=== PATIENT | male | born 1940 | race African-American/Black ===

== ENCOUNTER 2017-07-26 12:35 | Observation (INO) ==
[2017-07-26] MEDS ORDERED: ENOXAPARIN 100 MG/ML SYRINGE SUBCUT STA (13:07)
--- NOTE | 2017-07-26 13:10 | EKG Report ---
Stationary ECG Study [facility] ER Test Date: 07/26/2017 12:46:32 PM Pat Name: SANJEEV FRIEDMAN Department: Room: Gender: M [employer] In[employer]: : 1940 Requested by: Gilson Koehler Order Number: [id number] Reading MD: MITA FERNANDEZ Intervals [place] Rate: 88 P: 254 MS: 121 QRS: 85 QRSD: 86 T: -43 QT: 369 QTc: 415 Interpretive Statements JUNCTIONAL RHYTHM WITH OCCASIONAL ECTOPIC PREMATURE COMPLEXES Electronically Signed On 07-26-17 17:01:15 CDT by MITA FERNANDEZ [email or web address]
[2017-07-26 13:40] LABS: Basophils # 0.1 10*3/uL (0.0-0.2); Basophils % 0.7 % (0.0-0.8); Eosinophils # 0.2 10*3/uL (0.0-0.87); Eosinophils % 2.8 % (0.00-10.9); Hematocrit 34.8 VOL% (42.0-52.0); Hemoglobin 11.6 GM/DL (14.0-18.0); Immature Granulocytes % 0.3 %; Immature Granulocytes Absolute 0.02 #; Lymphocytes # 1.8 10*3/uL (1.4-4.0); Lymphocytes % 25.7 % (21.2-54.2); Mean Corpuscular HGB Conc 33.3 GM/DL (32-36); Mean Corpuscular Hemoglobin 31 PG (27-34); Mean Corpuscular Volume 92.8 FL (87-102); Mean Platelet Volume 10.1 FL (9.6-12.0); Monocytes # 0.8 10*3/uL (0.11-0.8); Monocytes % 11.3 % (1.7-12.7); Neutrophils # 4.2 10*3/uL (1.4-7.4); Neutrophils % 59.2 % (38.7-73.9); Platelet Count 235 T/CUMM (130-400); Red Blood Count 3.75 MC/CUMM (3.8-5.5); Red Cell Distribution Width 13.7 % (9.3-17.3); White Blood Count 7.1 T/CUMM (4-12)
[2017-07-26] MEDS ORDERED: ENOXAPARIN 120 MG/0.8 ML SYRINGE SUBCUT STA (13:41)
[2017-07-26] MEDS ORDERED: ENOXAPARIN 120 MG/0.8 ML SYRINGE SUBCUT ONE (13:42)
--- NOTE | 2017-07-26 13:46 | XRay Report ---
XR chest 1V portable Indication: Chest pain. Comparison: None. Technique: Portable AP chest was performed. Findings: The heart is minimally enlarged. Previous sternotomy is demonstrated. Pulmonary vasculature demonstrates no specific abnormality. Hilar structures demonstrate fairly symmetric appearance. The lungs appear clear. Bones and soft tissues demonstrate no evidence of acute pathology. Impression: 1. No evidence of acute pathology. 2. Mild cardiomegaly is suggested. 07/26/2017 1:43 PM PROCEDURE INTERPRETED AT [facility] DEPARTMENT OF RADIOLOGY Final Report Signed by: Dr. Fred Ojeda
[2017-07-26 14:04] LABS: Alanine Aminotransferase 17 U/L (16-61); Albumin 3.7 G/DL (3.4-5.0); Alkaline Phosphatase 95 U/L (45-117); Aspartate Amino Transferase 20 U/L (0-37); Bilirubin,Total < 0.39 MG/DL (0.2-1.0); Blood Urea Nitrogen 44 MG/DL (7-18); Calcium 8.9 MG/DL (8.5-10.1); Glucose 103 MG/DL (74-106); Potassium 5.4 MMOL/L (3.5-5.1); Sodium 143 MMOL/L (136-145); Total Protein 7.6 G/DL (6.4-8.3)
--- NOTE | 2017-07-26 14:54 | Emergency Department Note ---
Alva Goodwin Hilary, am scribing for, and in the presence of, Gilson Hitchcock MD 13:04. Naldo Goodwin Phillip K, MD, personally performed the services described in this documentation, ascribed by Carisa Calle in my presence, and it is both accurate and complete [id number] . Arrival - Arrival Chief Complaint: Chest Pain Stated Complaint: chest pain and light headed ED Nursing Triage Note: Pt c/o Chest pain, SOB, and lightheaded since Monday. Mode of Arrival: Ambulatory Limitations: No Limitations Source: Patient, RN Notes Reviewed - History of Present Illness HPI Narrative: Pt is a 76 y/o male presenting to the ED with c/o chest pain which onset 4 days ago. He states that he had a single bypass in '. He states that he has this happen intermittently and so he usually sits down until it passes. He says the latest episode was this morning around 0800 and it lasted about 4 minutes, but he denies pain right now. Pt confirms chest pain which gets worse with exertion , SOB and feet swelling but denies nausea, vomiting, diaphoresis, fever or cough Pt has a PMHx of HTN, dyslipidemia and NIDDM. No other complaints or problems stated in the ED. Onset (ago): day(s) Consistency: intermittent, now resolved Severity: mild, similar to previous episodes Severity scale (1-10): 2 Allergies/Adverse Reactions: Allergies Allergy/AdvReac Type Severity Reaction Status Date / Time No Known Allergies Allergy Verified 07/26/17 12:37 Home Medications: Home Medications Medication Instructions Recorded Confirmed Type Allopurinol [Allopurinol] 100 mg PO QAM 07/26/17 07/26/17 History Aspirin EC Tab 81 mg PO QAM 07/26/17 07/26/17 History Atenolol [Atenolol] 50 mg PO QAM 07/26/17 07/26/17 History Furosemide [Furosemide] 40 mg PO QAM 07/26/17 07/26/17 History Lisinopril [Lisinopril] 40 mg PO QAM 07/26/17 07/26/17 History Simvastatin [Simvastatin] 40 mg PO BEDTIME 07/26/17 07/26/17 History amLODIPine [Norvasc] 10 mg PO QAM 07/26/17 07/26/17 History glipiZIDE [Glipizide] 5 mg PO QAM 07/26/17 07/26/17 History Review of System - Review of System 12 point system: reviewed and no additional remarkable complaints except as stated - Review of System Constitutional: Absent: diaphoresis, fever Respiratory: Present: respiratory distress (SOB) Cardiovascular: Present: chest pain, edema Gastrointestinal: Absent: abdominal pain, nausea, vomiting Medical,Surgical,& Family Hx - Medical History Cardio: History of: Hypertension Endocrine: History of: Diabetes Mellitus (NIDDM), Dyslipidemia - Surgical History Cardiac Surgeries: Sugical HX of: Cardiac Surgery (CABG) - Social History Smoking Status: Never smoker Exam Vital Signs: Vital Signs Temperature 98.6 F 07/26/17 12:37 Pulse Rate 78 07/26/17 14:16 Respiratory Rate 49 H 07/26/17 14:16 Blood Pressure 155/75 07/26/17 14:16 O2 Sat by Pulse Oximetry 98 07/26/17 14:16 - General General appearance: alert, in no apparent distress - Head Head exam: Present: atraumatic, normocephalic - Eye Eye exam: Present: normal appearance, PERRL, EOMI - ENT ENT exam: Present: mucous membranes moist, TM's normal bilaterally. Absent: mucous membranes dry - Neck Neck exam: Present: full ROM, trachea midline. Absent: tenderness - Chest Chest inspection: Present: symmetric chest wall rise. Absent: tenderness - Respiratory Respiratory exam: Present: normal lung sounds bilaterally. Absent: respiratory distress - Cardiovascular Cardiovascular exam: Present: regular rate, normal rhythm, normal heart sounds. Absent: murmur, rubs, gallop - Abdominal Exam Abdominal exam: Present: soft, normal bowel sounds. Absent: distention, tenderness - Extremities Exam Extremities exam: Present: full ROM, pedal edema (+1 ). Absent: tenderness - Back Exam Back exam: Present: full ROM. Absent: tenderness - Neurological Exam Neurological exam: Present: alert, oriented X3, CN II-XII intact. Absent: motor sensory deficit - Psychiatric Psychiatric exam: Present: normal affect, normal mood - Skin Skin exam: Present: warm, dry, intact, normal color. Absent: rash Course Course Narrative: Mr. Bowman creatinine is 6.0 today. We checked with Dr. Can's office and the last creatinine we have was in January was 4.92. Results - Labs CBC & BMP: 07/26/17 13:34 07/26/17 13:34 Lab Results: I have reviewed the patients labs Labs: Laboratory Tests 07/26/17 13:34 WBC 7.1 RBC 3.75 L Hgb 11.6 L Hct 34.8 L Laboratory Tests 07/26/17 07/26/17 13:34 13:34 Sodium 143 Potassium 5.4 H Chloride 115 H Carbon Dioxide 21 BUN 44 H Creatinine 6.00 H Troponin I 0.153 H Globulin 3.9 H Albumin/Globulin Ratio 0.9 L - EKG EKG results: interpreted by SKYLAR (Junctional rhythm with nonspecific ST-T changes) - Diagnostic Findings Procedure: Chest x-ray: report reviewed by me (1. No evidence of acute pathology. 2. Mild cardiomegaly is suggested.) Disposition Clinical Impression: Chest pain, Unstable angina pectoris, Chronic renal failure Case discussed with: patient Disposition: Still a Patient Condition: Guarded
[2017-07-26] MEDS ORDERED: ACETAMINOPHEN 325 MG TABLET PO PRN (15:04)
[2017-07-26] MEDS ORDERED: GLUCAGON 1 MG VIAL IM PRN (15:04)
[2017-07-26] MEDS ORDERED: ONDANSETRON 4 MG/2 ML VIAL IV PRN (15:04)
[2017-07-26] MEDS ORDERED: DEXTROSE 50% 25 GM/50 ML SYRINGE IV PRN (15:04)
[2017-07-26] MEDS: INSULIN REGULAR 100 UNIT/ML SUBCUT SCH ×2 (17:33→22:11)
[2017-07-26] MEDS ORDERED: NITROGLYCERIN SL 0.4 MG TABLET SL PRN (19:52)
--- NOTE | 2017-07-26 19:58 | Family Practice History&Phys ---
Assessment and Plan - Time spent with patient Time spent with patient: Greater than 30 minutes (1) Chest pain Status: Acute Assessment and plan: see HPI per Cardiology consult Current Visit: Yes (2) Chronic renal failure Status: Acute Assessment and plan: consult Renal Current Visit: Yes (3) Unstable angina pectoris Status: Acute Current Visit: Yes History of Present Illness Chief complaint: chest pain and light headed History of present illness: Mr. Hidalgo is a 76 year old male that is a patient of mine that has no other family and he presented to the ED with c/o of chest pain that started about 4 days ago. He states that he had a single bypass in 84'. He states that he has this happen intermittently and so he usually sits down until it passes. He says the latest episode was this morning around 0800 and it lasted about 4 minutes, but he denies pain right now. Pt confirms chest pain which gets worse with exertion, also c/o mild SOB and feet swelling but denies nausea, vomiting, diaphoresis, fever or cough. Patient has a PMHx of HTN, dyslipidemia and NIDDM. No other complaints or problems stated in the ED. Renal function poor. Plan admit and consult cardiology and renal consult. Home Medications Medication Instructions Recorded Confirmed Type Allopurinol [Allopurinol] 100 mg PO QAM 07/26/17 07/26/17 History Aspirin EC Tab 81 mg PO QAM 07/26/17 07/26/17 History Atenolol [Atenolol] 50 mg PO QAM 07/26/17 07/26/17 History Lisinopril [Lisinopril] 40 mg PO QAM 07/26/17 07/26/17 History Simvastatin [Simvastatin] 40 mg PO BEDTIME 07/26/17 07/26/17 History amLODIPine [Norvasc] 10 mg PO QAM 07/26/17 07/26/17 History glipiZIDE [Glipizide] 5 mg PO QAM 07/26/17 07/26/17 History Allergies Allergy/AdvReac Type Severity Reaction Status Date / Time No Known Allergies Allergy Verified 07/26/17 12:37 12 point system: reviewed and no additional remarkable complaints except as stated (as those stated in HPI) Medical,Surgical,& Family Hx - Medical History Cardio: History of: Hypertension Endocrine: History of: Diabetes Mellitus (NIDDM), Dyslipidemia - Surgical History Cardiac Surgeries: Sugical HX of: Cardiac Surgery (CABG) Neurologic Surgeries: Patient denies: Neurologic Surgery Reproductive Surgeries: Surgical HX of;: Genitourinary Surgery, Prostate Surgery - Family History Family History: Reports;: Family Heart Disease - Social History Smoking Status: Never smoker Exam - Constitutional Vitals: Period Temp Pulse Resp BP Sys/V[place]or Pulse Ox Last 24 Hr 97.7 F-98.6 F 75-85 16-49 142-200/68-86 92-100 Exam: General: well developed moderately obese male alert and oriented, no chest pain at present HEENT: neck supple trachea midline Cardiovascular: rate regular no gallop or rub Chest: incisional scar noted healed Lungs: clear no wheese rles or rhonchi Abdomen: soft non distended Ext: 1+ edema bilateral lower extremities Neurologic: fully intact Results - Labs CBC & BMP: 07/26/17 13:34 07/26/17 13:34
[2017-07-26] MEDS ORDERED: SIMVASTATIN 40 MG TABLET PO SCH (21:00)
[2017-07-26] MEDS: DOCUSATE SODIUM 100 MG CAPSULE PO SCH (22:11)
[2017-07-26 22:52] LABS: Troponin I Only 0.336 NG/ML (0.00-0.045)
--- NOTE | 2017-07-27 08:01 | EKG Report ---
Stationary ECG Study [facility] Test Date: 07/26/2017 10:17:23 PM Pat Name: SANJEEV FRIEDMAN Department: Room: 290 Gender: M [employer]': : 1940 Requested by: Gilson Koehler Order Number: [id number] Reading MD: MITA FERNANDEZ Intervals [place] Rate: 69 P: 60 AL: 185 QRS: 43 QRSD: 102 T: 58 QT: 438 QTc: 457 Interpretive Statements SINUS RHYTHM POOR R-WAVE PROGRESSION Electronically Signed On 07-28-17 15:28:23 CDT by MITA FERNANDEZ [email or web address]
[2017-07-27] MEDS ORDERED: ATENOLOL 50 MG TABLET PO SCH (09:00)
--- NOTE | 2017-07-27 09:13 | Family Practice Progress Note ---
Family Practice - PN: Subj Interval history: Patient seen this morning. He rested fairly well last night. Is in no acute distress and has not had any chest pain or shortness of breath through the night. Is alert and oriented. He is being covered with appropriate medications for cardiac issues. I am getting cardiology to see him today and appreciate their assistance on this case Exam (Progress Note) - Constitutional Vitals: Period Temp Pulse Resp BP Sys/V[place]or Pulse Ox Last 24 Hr 97.4 F-98.6 F 69-85 16-49 142-200/67-86 92-100 Exam: General: well developed moderately obese male alert and oriented, no chest pain at present HEENT: neck supple trachea midline Cardiovascular: rate regular no gallop or rub Chest: incisional scar noted healed Lungs: clear no wheese rles or rhonchi Abdomen: soft non distended Ext: No edema appreciated this morning Neurologic: fully intact Results - Labs CBC & BMP: 07/26/17 13:34 07/26/17 13:34 Assessment and Plan (1) Chest pain Status: Acute Assessment and plan: see HPI per Cardiology consult Current Visit: Yes (2) Chronic renal failure Status: Acute Assessment and plan: consult Renal Current Visit: Yes (3) Unstable angina pectoris Status: Acute Current Visit: Yes
[2017-07-27] MEDS: LISINOPRIL 20 MG TABLET PO SCH (11:30)
[2017-07-27] MEDS: ENOXAPARIN 30 MG/0.3 ML SYRINGE SUBCUT SCH (11:30)
[2017-07-27] MEDS: ALLOPURINOL 100 MG TABLET PO SCH (11:31)
[2017-07-27] MEDS: amLODIPine 10 MG TABLET PO SCH (11:31)
[2017-07-27] MEDS: DOCUSATE SODIUM 100 MG CAPSULE PO SCH ×3 (11:31→21:19)
[2017-07-27] MEDS: PANTOPRAZOLE 40 MG TABLET PO SCH (11:32)
[2017-07-27] MEDS: ISOSORBIDE MONONITRATE 30 MG TABLET PO SCH (11:32)
[2017-07-27] MEDS: glipiZIDE 5 MG TABLET PO SCH (11:32)
[2017-07-27] MEDS: INSULIN REGULAR 100 UNIT/ML SUBCUT SCH ×4 (11:33→21:16)
[2017-07-27] MEDS: ASPIRIN EC 81 MG TABLET PO SCH (11:42)
--- NOTE | 2017-07-27 12:24 | Nephrology Consult Note ---
History of Present Illness Chief complaint: Chronic kidney disease stage V History of present illness: Mr. Hidalgo is a 76 year old male who has a history of chronic kidney disease due to hypertension and diabetes is well known to this nephrology service. The patient's serum creatinine has been trending up over the last year and patient has been very resistant about starting dialysis. He has a history of coronary artery disease as well as hypertension and presented with atypical chest pain. Currently, patient serum creatinine is 6. No shortness of breath or chest pain. No fevers or chills. He has been hemodynamically stable. Of note, patient does not use intake medications. There is been no other change in medications. Home Medications Medication Instructions Recorded Confirmed Type Allopurinol [Allopurinol] 100 mg PO QAM 07/26/17 07/26/17 History Aspirin EC Tab 81 mg PO QAM 07/26/17 07/26/17 History Atenolol [Atenolol] 50 mg PO QAM 07/26/17 07/26/17 History Lisinopril [Lisinopril] 40 mg PO QAM 07/26/17 07/26/17 History Simvastatin [Simvastatin] 40 mg PO BEDTIME 07/26/17 07/26/17 History amLODIPine [Norvasc] 10 mg PO QAM 07/26/17 07/26/17 History glipiZIDE [Glipizide] 5 mg PO QAM 07/26/17 07/26/17 History Allergies Allergy/AdvReac Type Severity Reaction Status Date / Time No Known Allergies Allergy Verified 07/26/17 12:37 Medical,Surgical,& Family Hx - Medical History Cardio: History of: Hypertension Endocrine: History of: Diabetes Mellitus (NIDDM), Dyslipidemia - Surgical History Cardiac Surgeries: Sugical HX of: Cardiac Surgery (CABG) Neurologic Surgeries: Patient denies: Neurologic Surgery Reproductive Surgeries: Surgical HX of;: Genitourinary Surgery, Prostate Surgery - Family History Family History: Reports;: Family Heart Disease - Social History Smoking Status: Never smoker Review of Systems Constitutional: no anorexia Nose, mouth and throat: no dysphagia, no epistaxis Cardiovascular: no chest pain at rest, no chest pain with activity Respiratory: no cough Gastrointestinal: no abdominal pain Exam - Vital Signs Vital signs: Period Temp Pulse Resp BP Sys/V[place]or Pulse Ox Last 24 Hr 97 F-98.6 F 69-85 16-49 142-200/67-86 92-100 - General Appearance General appearance: well-developed, well-nourished EENT: ATNC Neck: supple Respiratory: clear Cardiology: regular rate, regular rhythm Gastrointestinal: normoactive bowel sounds, no tenderness, no guarding Neurologic: no focal deficit, alert and oriented x3, CN 3-12 intact Musculoskeletal: no clubbing Psychiatric: mood/affect appropriate Results - Labs CBC & BMP: 07/26/17 13:34 07/26/17 13:34 Assessment and Plan (1) Hypertension Status: Chronic Current Visit: Yes Qualifiers: Hypertension type: essential hypertension Qualified Code(s): I10 - Essential (primary) hypertension (2) Dyslipidemia Status: Chronic Current Visit: Yes (3) Chronic renal disease, stage IV Status: Chronic Assessment and plan: Protect left arm from blood pressure and blood draws. BMP in a.m. Avoid nephrotoxic agents. Current Visit: Yes (4) Diabetes type 2, controlled Status: Chronic Current Visit: Yes Qualifiers: Diabetes mellitus complication status: with kidney complications Diabetes mellitus complication detail: with chronic kidney disease Chronic kidney disease stage: stage 4 (severe) (5) Unstable angina pectoris Status: Acute Current Visit: Yes
--- NOTE | 2017-07-27 12:57 | Ultrasound Report ---
US carotid duplex BI Indication: bruit. Comparison: None. Technique: Using transcutaneous probe, routine carotid arterial duplex ultrasound performed. Ultrasound images were captured and stored. Estimation of stenosis will be made using indirect NASCET criteria. Ultrasound images were captured and stored. Findings: Grayscale and color Doppler findings: There does appear to be a small amount of echogenic plaque within the right carotid artery bulb. Small moderate amount of echogenic plaque some of which demonstrates posterior shadowing is noted within the origin and proximal right cervical segment ICA. Similar findings noted within the left carotid artery bulb. The quality of echotexture is slightly less echogenic. Peak systolic velocities are as follows (centimeters per second): Velocities are elevated in the right proximal cervical segment ICA measuring 149 cm/s. Velocities additionally elevated within the proximal left cervical segment ICA measuring 155 cm/s. Distal left cervical segment ICA measurements additionally are elevated measuring 134 cm/s. ICA to CCA ratio on the right is 2.2 on the left 2.3. External carotid arteries: External carotid arteries are bilaterally patent. Vertebral arteries: Flow cannot be determined within the left vertebral artery. Antegrade flow is present within the right vertebral artery. Impression: 1. 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 2. No flow in be determined within the left vertebral artery. 07/27/2017 12:52 PM PROCEDURE INTERPRETED AT [facility] DEPARTMENT OF RADIOLOGY Final Report Signed by: Dr. Fred Ojeda
--- NOTE | 2017-07-27 14:57 | Cardiology Consult Note ---
I, Merry Jimenez NP, am scribing for, and in the presence of, Kyle Richardson MD 14:55. Assessment and Plan - Time spent with patient Time spent with patient: Greater than 30 minutes (Record review, assessment, and documentation) (1) Chest pain Status: Acute Assessment and plan: The patient has chest pain symptoms which I believe are anginal in nature. However, I am going to hold off on invasive workup/catheterization because of his severe renal insufficiency. Hopefully we can get this managed medically. I appreciate Dr. Doe's input and assistance. Current Visit: Yes (2) Unstable angina pectoris Status: Acute Assessment and plan: See above Current Visit: Yes (3) Hypertension Status: Chronic Assessment and plan: I am making some adjustments in his blood pressure medication to improve his hypertension control. Of note, he is on an HERB inhibitor and with his renal insufficiency we may need to stop this medication. I would like to get Dr. Doe's input on this. Current Visit: Yes Qualifiers: Hypertension type: essential hypertension Qualified Code(s): I10 - Essential (primary) hypertension (4) Chronic renal failure Status: Chronic Assessment and plan: The patient has a slowly rising creatinine. I am going to consult Dr. Doe for assistance and management. Because of his severe renal insufficiency we may need to stop his HERB inhibitor but I would like Dr. Russell and put on this. 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 Hidalgo is a 76 year old male, presented to the ER with complaints of chest pain and dyspnea on exertion. He reports that his symptoms began about 2 months ago, but that the chest pain and dyspnea were alleviated with rest. He reports that the most recent episode began on Monday, and he noticed that the symptoms were not relieved with rest. He also noted diaphoresis that occurred at the time of chest pain. He denies nausea, vomiting, or diarrhea. He denies smoking, alcohol use, or illicit drug use. Cardiac risk factors include: Obesity, advanced age, CAD, dyslipidemia, diabetes, chronic renal failure, hypertension, and sedentary lifestyle. Past surgical history includes single- vessel coronary artery bypass in 1982, done in [place], [place] and a prostate surgery for an enlarged prostate. 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 He admits that he is compliant with his daily medications. He reports that he sees Dr. Doe regularly for his chronic renal failure and that he has not yet required hemodialysis. The patient was seen today by myself and Dr. Richardson. He was sitting on the side of the bed in no apparent distress. He denies complaints of chest pain or dyspnea. Vital signs reviewed, and his systolic blood pressures have remained in the 150s-170s. Heart rate in the 70s. EKG reveals normal sinus rhythm. Labs reviewed today: Hemoglobin 11.6, hematocrit 34.8, potassium 5.4, creatinine 6.0, BUN 44, glucose 103, creatinine kinase 419, CK-MB 3.8, and troponin I peaked at 0.413. We will obtain an echocardiogram, and carotid Dopplers. At this point, we will maximize medical management of this patient due to his significant chronic renal disease. The patient may benefit from a left heart cath at some point, however will hold off until we can consult nephrology for recommendations. Home Medications Medication Instructions Recorded Confirmed Type Allopurinol [Allopurinol] 100 mg PO QAM 07/26/17 07/26/17 History Aspirin EC Tab 81 mg PO QAM 07/26/17 07/26/17 History Atenolol [Atenolol] 50 mg PO QAM 07/26/17 07/26/17 History Lisinopril [Lisinopril] 40 mg PO QAM 07/26/17 07/26/17 History Simvastatin [Simvastatin] 40 mg PO BEDTIME 07/26/17 07/26/17 History amLODIPine [Norvasc] 10 mg PO QAM 07/26/17 07/26/17 History glipiZIDE [Glipizide] 5 mg PO QAM 07/26/17 07/26/17 History ASSESSMENT/PLAN: 1. UNSTABLE ANGINA -currently chest pain-free, we will optimize medical management at this time. Cardiac catheterization would undoubtedly send the patient to dialysis. If we can manage him medically we may be able to postpone invasive cardiac assessment. His case was discussed today with Dr. Doe who will be assisting in management as well. If the patient has anginal symptoms despite optimal medical therapy we may have to consider catheterization. 2. CAD -see above, obtain echocardiogram. 3. HYPERTENSION -I am good to make some adjustments in his medical management to improve his hypertension control. Of note, the patient is on an HERB inhibitor. Given his renal insufficiency we may have to adjust this medication. 4. CHRONIC RENAL FAILURE -unclear if this is acute on chronic renal failure, consult nephrology for recommendations. 5. CAROTID BRUIT -obtain carotid ultrasound. 6. DYSLIPIDEMIA -will obtain a fasting lipid profile, stop simvastatin, initiate Lipitor. 7. DIABETES TYPE 2 -Accu-Cheks and sliding scale insulin if needed, continue oral medications. CC: Lukas Can, DO - Home Medications and Allergies Home Medications: Home Medications Medication Instructions Recorded Confirmed Type Allopurinol [Allopurinol] 100 mg PO QAM 07/26/17 07/26/17 History Aspirin EC Tab 81 mg PO QAM 07/26/17 07/26/17 History Atenolol [Atenolol] 50 mg PO QAM 07/26/17 07/26/17 History Lisinopril [Lisinopril] 40 mg PO QAM 07/26/17 07/26/17 History Simvastatin [Simvastatin] 40 mg PO BEDTIME 07/26/17 07/26/17 History amLODIPine [Norvasc] 10 mg PO QAM 07/26/17 07/26/17 History glipiZIDE [Glipizide] 5 mg PO QAM 07/26/17 07/26/17 History Allergies/Adverse Reactions: Allergies Allergy/AdvReac Type Severity Reaction Status Date / Time No Known Allergies Allergy Verified 07/26/17 12:37 - Constitutional Constitutional: Absent: anorexia, chills, daytime sleepiness, frequent falls - EENT Nose, mouth and throat: Absent: dysphagia, epistaxis, headache(s) - Cardiovascular Cardiovascular: Present: chest pain with activity, diaphoresis, dyspnea on exertion, edema - Respiratory Respiratory: Present: dyspnea, dyspnea on exertion. Absent: cough, wheezing - Gastrointestinal Gastrointestinal: Absent: abdominal pain, change in bowel habits, coffee ground emesis, constipation, dysphagia, heartburn, hematemesis, melena, nausea, vomiting - Genitourinary Genitourinary: Absent: dysuria, hematuria - Neurological Neurological: Absent: abnormal gait, abnormal speech, behavioral changes, confusion, dizziness - Psychiatric Psychiatric: Absent: anxiety - Endocrine Endocrine: Absent: fatigue - Hematologic/Lymphatic Hematologic/Lymphatic: Absent: easy bleeding, easy bruising Medical,Surgical,& Family Hx - Medical History Cardio: History of: CAD, Hypertension, [place] No history of: Cardiac Dysrhythmia, Cerebrovascular Disease Psychological: No history of: Anxiety Disorders, Behavior Problems Neurology: No history of: Cerebral Hemorrhage, Cerebrovascular Accident, TIA Endocrine: History of: Diabetes Mellitus (NIDDM), Dyslipidemia Respiratory: No history of: Asthma, COPD Renal: History of: Renal Failure No history of: Dialysis Genitourinary: History of: Prostate Problems Gastrointestinal: No history of: Bowel Obstruction, Gastrointestinal Bleed Musculoskeletal: No history of: Amputation, Back/Neck Problems - Surgical History Cardiac Surgeries: Sugical HX of: Cardiac Surgery (CABG) Neurologic Surgeries: Patient denies: Neurologic Surgery Reproductive Surgeries: Surgical HX of;: Genitourinary Surgery, Prostate Surgery - Family History Family History: Reports;: Family Heart Disease - Social History Smoking Status: Never smoker Frequency of Alcohol Use: None Type of Drug Use: None Functional capacity: independent ambulation Physical Examination Vital Signs Temp Pulse Resp BP Pulse Ox 98.6 F 85 20 200/86 97 07/26/17 12:37 07/26/17 12:37 07/26/17 12:37 07/26/17 12:37 07/26/17 12:37 Exam: General: Obese, appears well with no apparent distress. Pleasant and cooperative. Appears comfortable. HEENT: PERRL, normocephalic, atraumatic. Mucous membranes moist. No jaundice noted. Conjunctiva moist and clear, sclerae anicteric. Neck: No JVD/HJR, no thyromegaly or lymphadenopathy noted. Soft carotid bruit appreciated bilaterally Cardiac: Regular rate and rhythm. No murmur, no rub or gallop. PMI is nondisplaced. Lungs: Clear to auscultation without accessory muscle use to assist the respiratory pattern. No oxygen required. Abdomen: Soft, bowel sounds normoactive. Nontender and nondistended. No abdominal bruit or thrill noted. No masses noted. Musculoskeletal: No fluid collection. Decreased range of motion is noted. Extremities: No clubbing, cyanosis noted. No edema noted. Upper extremity pulses 2+. Lower extremity pulses 2+. Capillary refill less than 3 seconds. Skin: No unusual lesions or rashes. No skin breakdown appreciated. Neuro: Awake, alert and oriented 3. Moves all extremities well without hemiparesis or paralysis. No essential tremor is appreciated. Result/EKG - Labs CBC & BMP: 07/26/17 13:34 07/26/17 13:34 Lab Results: I have reviewed the past 24 hour labs Labs: Laboratory Results - last 24 hr 07/26/17 07/26/17 07/26/17 13:34 13:34 13:34 WBC 7.1 RBC 3.75 L Hgb 11.6 L Hct 34.8 L MCV 92.8 MCH 31 MCHC 33.3 RDW 13.7 Plt Count 235 MPV 10.1 Neut % (Auto) 59.2 Lymph % (Auto) 25.7 [place] % (Auto) 11.3 Eos % (Auto) 2.8 Baso % (Auto) 0.7 Neut # (Auto) 4.2 Lymph # (Auto) 1.8 [place] # (Auto) 0.8 Eos # (Auto) 0.2 Baso # (Auto) 0.1 Immature Gran % 0.3 Nucleated RBC % 0.0 Immature Gran # 0.02 Nucleated RBCs # 0.00 Immature Plt Fraction 0.0 Sodium 143 Potassium 5.4 H Chloride 115 H Carbon Dioxide 21 Anion Gap 12.4 BUN 44 H Creatinine 6.00 H GFR Calculation 14 BUN/Creatinine Ratio 7.00 Glucose 103 POC Glucose Calculated Osmolality 295.0 Calcium 8.9 Magnesium 2.0 Total Bilirubin < 0.39 AST 20 ALT 17 Alkaline Phosphatase 95 Total Creatine Kinase CK-MB (CK-2) Troponin I 0.153 H Total Protein 7.6 Albumin 3.7 Globulin 3.9 H Albumin/Globulin Ratio 0.9 L 07/26/17 07/26/17 07/26/17 16:55 17:14 18:37 WBC RBC Hgb Hct MCV MCH MCHC RDW Plt Count MPV Neut % (Auto) Lymph % (Auto) [place] % (Auto) Eos % (Auto) Baso % (Auto) Neut # (Auto) Lymph # (Auto) [place] # (Auto) Eos # (Auto) Baso # (Auto) Immature Gran % Nucleated RBC % Immature Gran # Nucleated RBCs # Immature Plt Fraction Sodium Potassium Chloride Carbon Dioxide Anion Gap BUN Creatinine GFR Calculation BUN/Creatinine Ratio Glucose POC Glucose 90 Calculated Osmolality Calcium Magnesium Total Bilirubin AST ALT Alkaline Phosphatase Total Creatine Kinase CK-MB (CK-2) Troponin I 0.361 H D 0.413 H Total Protein Albumin Globulin Albumin/Globulin Ratio 07/26/17 07/26/17 07/27/17 20:37 21:32 07:50 WBC RBC Hgb Hct MCV MCH MCHC RDW Plt Count MPV Neut % (Auto) Lymph % (Auto) [place] % (Auto) Eos % (Auto) Baso % (Auto) Neut # (Auto) Lymph # (Auto) [place] # (Auto) Eos # (Auto) Baso # (Auto) Immature Gran % Nucleated RBC % Immature Gran # Nucleated RBCs # Immature Plt Fraction Sodium Potassium Chloride Carbon Dioxide Anion Gap BUN Creatinine GFR Calculation BUN/Creatinine Ratio Glucose POC Glucose 177 H 108 H Calculated Osmolality Calcium Magnesium Total Bilirubin AST ALT Alkaline Phosphatase Total Creatine Kinase 419 H CK-MB (CK-2) 3.8 H Troponin I 0.336 H Total Protein Albumin Globulin Albumin/Globulin Ratio - Diagnostic Findings Procedure: Chest x-ray: report reviewed by me - EKG EKG results: interpreted by me, sinus rhythm I, Kyle Richardson MD, personally performed the services described in this documentation, ascribed by Merry Jimenez NP in my presence, and it is both accurate and complete 457 .
--- NOTE | 2017-07-27 18:31 | ECHO Report ---
Vic Hidalgo Exam Date: 07/27/2017 10:20 Referring Physician: Technologist: Estela Mi Age: 76 Ht (in): 70 Wt (lb): 284 Gender: M Exam Location: [facility] Echo Indications: diabetes, CRF, chest pain, angina, CAD, dyspnea BP: 176 / 84 HR: 70 Rhythm: Sinus Technical Quality: Technically difficult study IMPRESSIONS Technically difficult study. Left ventricular ejection fraction is estimated at 50-55 %. Mild concentric left ventricular hypertrophy with mild diastolic dysfunction. Trace mitral regurgitation. Trace tricuspid regurgitation. MEASUREMENTS (Male / Female) Normal Values 2D ECHO LV Diastolic Diameter PLAX 3.8 cm 4.2 - 5.9 / 3.9 - 5.3 cm LV Systolic Diameter PLAX 2.9 cm LV Fractional Shortening PLAX 22.9 % IVS Diastolic Thickness 1.6 cm 0.6 - 1.0 / 0.6 - 0.9 cm LVPW Diastolic Thickness 1.7 cm 0.6 - 1.0 / 0.6 - 0.9 cm Aortic Root Diameter 3.2 cm LA Systolic Diameter LX 3.9 cm 3.0 - 4.0 / 2.7 - 3.8 cm FINDINGS Left Ventricle Normal left ventricular cavity size. Mild concentric left ventricular hypertrophy with mild diastolic dysfunction. Left ventricular ejection fraction is estimated at 50-55 %. Right Ventricle Normal right ventricular size. Right Atrium Normal right atrial size. Left Atrium Normal left atrial size. Mitral Valve Morphologically normal mitral valve. Trace mitral regurgitation. Aortic Valve Trileaflet aortic valve. Tricuspid Valve Morphologically normal tricuspid valve. Trace tricuspid regurgitation. Pulmonic Valve Morphologically normal pulmonic valve. Pericardium No pericardial effusion. Aorta Normal size aortic root and proximal ascending aorta. Kyle Richardson (Electronically Signed) Final Date: 27 July 2017 18:05
[2017-07-27] MEDS ORDERED: ATORVASTATIN 40 MG TABLET PO SCH (21:00)
[2017-07-27] MEDS: CARVEDILOL 25 MG TABLET PO SCH (21:15)
[2017-07-28 05:15] LABS: Basophils # 0.1 10*3/uL (0.0-0.2); Basophils % 0.9 % (0.0-0.8); Eosinophils # 0.2 10*3/uL (0.0-0.87); Eosinophils % 4.5 % (0.00-10.9); Hematocrit 30.4 VOL% (42.0-52.0); Immature Granulocytes % 0.2 %; Immature Granulocytes Absolute 0.01 #; Lymphocytes # 1.7 10*3/uL (1.4-4.0); Lymphocytes % 31.6 % (21.2-54.2); Mean Corpuscular HGB Conc 32.9 GM/DL (32-36); Mean Corpuscular Hemoglobin 31 PG (27-34); Mean Corpuscular Volume 93.3 FL (87-102); Mean Platelet Volume 10.3 FL (9.6-12.0); Monocytes # 0.8 10*3/uL (0.11-0.8); Monocytes % 14.1 % (1.7-12.7); Neutrophils # 2.6 10*3/uL (1.4-7.4); Neutrophils % 48.7 % (38.7-73.9); Platelet Count 199 T/CUMM (130-400); Red Blood Count 3.26 MC/CUMM (3.8-5.5); Red Cell Distribution Width 13.7 % (9.3-17.3); White Blood Count 5.3 T/CUMM (4-12)
[2017-07-28 05:48] LABS: Calcium 8.1 MG/DL (8.5-10.1); Magnesium 2.2 MG/DL (1.8-2.4); Potassium 5.2 MMOL/L (3.5-5.1)
[2017-07-28 05:49] LABS: Risk Ratio 5.4; VLDL CHOLESTEROL 24.4 MG/DL
--- NOTE | 2017-07-28 07:48 | EKG Report ---
Stationary ECG Study [facility] Test Date: 07/28/2017 7:49:08 AM Pat Name: SANJEEV FRIEDMAN Department: Room: 290 Gender: M Qc Analyst: HUSSEIN : 1940 Requested by: Meghan Wright Order Number: [id number] Reading MD: MITA FERNANDEZ Intervals [place] Rate: 63 P: 59 FL: 198 QRS: 48 QRSD: 90 T: 60 QT: 436 QTc: 443 Interpretive Statements SINUS RHYTHM WITH OCCASIONAL SUPRAVENTRICULAR PREMATURE COMPLEXES POOR R-WAVE PROGRESSION Electronically Signed On 07-28-17 15:59:05 CDT by MITA FERNANDEZ [email or web address]
[2017-07-28] MEDS: PANTOPRAZOLE 40 MG TABLET PO SCH (09:06)
[2017-07-28] MEDS: INSULIN REGULAR 100 UNIT/ML SUBCUT SCH ×2 (09:06→12:35)
[2017-07-28] MEDS: LISINOPRIL 20 MG TABLET PO SCH (09:06)
[2017-07-28] MEDS: ALLOPURINOL 100 MG TABLET PO SCH ×2 (09:06→10:52)
[2017-07-28] MEDS: ISOSORBIDE MONONITRATE 30 MG TABLET PO SCH (09:06)
[2017-07-28] MEDS: amLODIPine 10 MG TABLET PO SCH (09:06)
[2017-07-28] MEDS: glipiZIDE 5 MG TABLET PO SCH (09:06)
[2017-07-28] MEDS: ASPIRIN EC 81 MG TABLET PO SCH (09:06)
[2017-07-28] MEDS: CARVEDILOL 25 MG TABLET PO SCH (09:06)
[2017-07-28] MEDS: ENOXAPARIN 30 MG/0.3 ML SYRINGE SUBCUT SCH (09:06)
[2017-07-28] MEDS: DOCUSATE SODIUM 100 MG CAPSULE PO SCH (09:06)
[2017-07-28 11:49] VITALS: BP 171/77
--- NOTE | 2017-07-28 12:21 | Cardiology Progress Note ---
Tony Goodwin Lesley, NP, am scribing for, and in the presence of, Kyle Richardson MD 12:21. Assessment and Plan (1) Hypertension Status: Chronic Assessment and plan: SEE PLAN LISTED BELOW Current Visit: Yes Qualifiers: Hypertension type: essential hypertension Qualified Code(s): I10 - Essential (primary) hypertension (2) Chest pain Status: Acute Assessment and plan: SEE PLAN LISTED BELOW Current Visit: Yes (3) Chronic renal failure Status: Chronic Assessment and plan: SEE PLAN LISTED BELOW Current Visit: Yes (4) Diabetes Status: Chronic Assessment and plan: SEE PLAN LISTED BELOW Current Visit: Yes (5) Unstable angina pectoris Status: Acute Assessment and plan: SEE PLAN LISTED BELOW Current Visit: Yes (6) Dyslipidemia Status: Chronic Assessment and plan: SEE PLAN LISTED BELOW Current Visit: Yes (7) Carotid bruit Status: Acute Assessment and plan: SEE PLAN LISTED BELOW Current Visit: Yes Cardiology - PN: Subj Interval history: [employer]ATION[employer] MANAGER: Dr. Richardson (new) Mr. Hidalgo is a 76 year old male, presented to the ER with complaints of chest pain and dyspnea on exertion. He reports that his symptoms began about 2 months ago, but that the chest pain and dyspnea were alleviated with rest. He reports that the most recent episode began on Monday, and he noticed that the symptoms were not relieved with rest. He also noted diaphoresis that occurred at the time of chest pain. He denies nausea, vomiting, or diarrhea. He denies smoking, alcohol use, or illicit drug use. Cardiac risk factors include: Obesity, advanced age, CAD, dyslipidemia, diabetes, chronic renal failure, hypertension, and sedentary lifestyle. Past surgical history includes single- vessel coronary artery bypass in 1982, done in [place], [place] and a prostate surgery for an enlarged prostate. The patient denies seeing a managing attorney since his surgery in 1982. He admits that he is compliant with his daily medications. He reports that he sees Dr. Doe regularly for his chronic renal failure and that he has not yet required hemodialysis. The patient was seen today by myself and Dr. Richardson. He was sitting on the side of the bed in no apparent distress. He denies complaints of chest pain or dyspnea. Vital signs reviewed, and his systolic blood pressures have remained in the 150s-170s. Heart rate in the 70s. EKG reveals normal sinus rhythm. Labs reviewed today: Hemoglobin 11.6, hematocrit 34.8, potassium 5.4, creatinine 6.0, BUN 44, glucose 103, creatinine kinase 419, CK-MB 3.8, and troponin I peaked at 0.413. We will obtain an echocardiogram, and carotid Dopplers. At this point, we will maximize medical management of this patient due to his significant chronic renal disease. The patient may benefit from a left heart cath at some point, however will hold off until we can consult nephrology for recommendations. 2016: Patient is doing well overnight, he denies complaints of chest pain or shortness of breath. His blood pressure has been better controlled with medication changes. Carotid Doppler reveals velocities in the range of 50-69% stenosis involving bilateral proximal cervical segment ICAs. No flow determined in the left vertebral artery. Echocardiogram reveals left ventricular ejection fraction at 50-55% with mild concentric left ventricular hypertrophy and mild diastolic dysfunction. Trace mitral and tricuspid regurgitation. EKG today shows sinus rhythm with a PAC, rate 63. Labs reviewed and his creatinine did improve some to 5.5, hemoglobin A1c 6.5, troponin trending downward at 0.182. Triglycerides 122, cholesterol 135, LDL 88 , HDL 25. As the patient has remained chest pain-free, would recommend medical management for his coronary artery disease due to his severe renal insufficiency. From a cardiology standpoint, the patient is okay for discharge home today. Plan for follow-up with Dr. Richardson upon discharge in 2-4 weeks with CBC, CMP, magnesium, and EKG prior to appointment. ASSESSMENT/PLAN: 1. UNSTABLE ANGINA -we made some changes in his medical management and he is doing well clinically. He has had no further angina. We will continue to optimize medical management at this time. Cardiac catheterization would undoubtedly send the patient to dialysis. If we can manage him medically we may be able to postpone invasive cardiac assessment. I discussed his case today with Dr. Can. I think it is okay for him to be discharged home. I will follow-up with him in a few weeks and continue to adjust his medical management as needed. If the patient has anginal symptoms despite optimal medical therapy we may have to consider catheterization. 2. CAD -maximize medical management. May need catheterization if anginal symptoms return. 3. HYPERTENSION -I am good to make some adjustments in his medical management to improve his hypertension control. Of note, the patient is on an HERB inhibitor. Given his renal insufficiency we may have to adjust this medication. 4. CHRONIC RENAL FAILURE -hemodialysis not yet required, consider stopping lisinopril. 5. CAROTID BRUIT -velocities in the range of 50-69% stenosis, no flow determined in the left vertebral artery. 6. DYSLIPIDEMIA -initiated Lipitor, FLP reviewed. 7. DIABETES TYPE 2 -Accu-Cheks and sliding scale insulin if needed, continue oral medications. Exam (Progress Note) - Constitutional Vitals: Period Temp Pulse Resp BP Sys/Villasenor Pulse Ox Last 24 Hr 97 F-98.3 F 64-73 17-20 119-174/59-82 91-97 Exam: General: Obese, appears well with no apparent distress. Pleasant and cooperative. Appears comfortable. HEENT: PERRL, normocephalic, atraumatic. Mucous membranes moist. No jaundice noted. Conjunctiva moist and clear, sclerae anicteric. Neck: No JVD/HJR, no thyromegaly or lymphadenopathy noted. Soft carotid bruit appreciated. Cardiac: Regular rate and rhythm. No murmur rub or gallop. PMI is nondisplaced. Lungs: Clear to auscultation without accessory muscle use to assist the respiratory pattern. No oxygen required. Abdomen: Soft, bowel sounds normoactive. Nontender and nondistended. No abdominal bruit or thrill noted. No masses noted. Musculoskeletal: No fluid collection. Full range of motion is noted to all extremities. Extremities: No clubbing, cyanosis noted. No edema noted. Upper extremity pulses 2+. Lower extremity pulses 2+. Capillary refill less than 3 seconds. Skin: No unusual lesions or rashes. No skin breakdown appreciated. Neuro: Awake, alert and oriented 3. Moves all extremities well without hemiparesis or paralysis. No essential tremor is appreciated. Result/EKG - Labs CBC & BMP: 07/28/17 04:39 07/28/17 04:39 Lab Results: I have reviewed the past 24 hour labs Labs: Laboratory Results - last 24 hr 07/27/17 07/27/17 07/27/17 11:26 15:55 20:01 WBC RBC Hgb Hct MCV MCH MCHC RDW Plt Count MPV Neut % (Auto) Lymph % (Auto) Lyon % (Auto) Eos % (Auto) Baso % (Auto) Neut # (Auto) Lymph # (Auto) Lyon # (Auto) Eos # (Auto) Baso # (Auto) Immature Gran % Nucleated RBC % Immature Gran # Nucleated RBCs # Immature Plt Fraction Sodium Potassium Chloride Carbon Dioxide Anion Gap BUN Creatinine GFR Calculation BUN/Creatinine Ratio Glucose POC Glucose 111 H 114 H 158 H Hemoglobin A1c Calculated Osmolality Calcium Magnesium Troponin I Triglycerides Cholesterol LDL Cholesterol VLDL Cholesterol HDL Cholesterol Heart Disease Risk Ratio 07/28/17 07/28/17 07/28/17 04:39 04:39 04:39 WBC 5.3 RBC 3.26 L Hgb 10.0 L Hct 30.4 L MCV 93.3 MCH 31 MCHC 32.9 RDW 13.7 Plt Count 199 MPV 10.3 Neut % (Auto) 48.7 Lymph % (Auto) 31.6 Lyon % (Auto) 14.1 H Eos % (Auto) 4.5 Baso % (Auto) 0.9 H Neut # (Auto) 2.6 Lymph # (Auto) 1.7 Lyon # (Auto) 0.8 Eos # (Auto) 0.2 Baso # (Auto) 0.1 Immature Gran % 0.2 Nucleated RBC % 0.0 Immature Gran # 0.01 Nucleated RBCs # 0.00 Immature Plt Fraction 0.0 Sodium Potassium Chloride Carbon Dioxide Anion Gap BUN Creatinine GFR Calculation BUN/Creatinine Ratio Glucose POC Glucose Hemoglobin A1c Calculated Osmolality Calcium Magnesium Troponin I 0.182 H D Triglycerides 122 Cholesterol 135 LDL Cholesterol 88.0 VLDL Cholesterol 24.4 HDL Cholesterol 25 L Heart Disease Risk Ratio 5.40 07/28/17 07/28/17 07/28/17 04:39 04:39 07:22 WBC RBC Hgb Hct MCV MCH MCHC RDW Plt Count MPV Neut % (Auto) Lymph % (Auto) Lyon % (Auto) Eos % (Auto) Baso % (Auto) Neut # (Auto) Lymph # (Auto) Lyon # (Auto) Eos # (Auto) Baso # (Auto) Immature Gran % Nucleated RBC % Immature Gran # Nucleated RBCs # Immature Plt Fraction Sodium 143 Potassium 5.2 H Chloride 114 H Carbon Dioxide 21 Anion Gap 13.2 BUN 44 H Creatinine 5.50 H GFR Calculation 15 BUN/Creatinine Ratio 8.00 Glucose 109 H POC Glucose 111 H Hemoglobin A1c 6.5 H Calculated Osmolality 296.0 Calcium 8.1 L Magnesium 2.2 Troponin I Triglycerides Cholesterol LDL Cholesterol VLDL Cholesterol HDL Cholesterol Heart Disease Risk Ratio 07/28/17 11:19 WBC RBC Hgb Hct MCV MCH MCHC RDW Plt Count MPV Neut % (Auto) Lymph % (Auto) Lyon % (Auto) Eos % (Auto) Baso % (Auto) Neut # (Auto) Lymph # (Auto) Lyon # (Auto) Eos # (Auto) Baso # (Auto) Immature Gran % Nucleated RBC % Immature Gran # Nucleated RBCs # Immature Plt Fraction Sodium Potassium Chloride Carbon Dioxide Anion Gap BUN Creatinine GFR Calculation BUN/Creatinine Ratio Glucose POC Glucose 115 H Hemoglobin A1c Calculated Osmolality Calcium Magnesium Troponin I Triglycerides Cholesterol LDL Cholesterol VLDL Cholesterol HDL Cholesterol Heart Disease Risk Ratio - Diagnostic Findings Procedure: Ultrasound: report reviewed by me - EKG EKG results: interpreted by me, sinus rhythm Specialty Discharge - Follow Up or Referrals Follow up with: Deion Doe Jr., MD [Physician] - 2 Weeks Kyle Richardson MD [Physician] - 1 Month (bmp with mag prior to appt) I, Kyle Richardson MD, personally performed the services described in this documentation, ascribed by Merry Jimenez NP in my presence, and it is both accurate and complete .
--- NOTE | 2017-07-28 13:24 | Discharge Summary ---
Hospital Course - Hospital Course Hospital Course: Patient came to the hospital with new onset chest pain. He does have a history of cardiac disease and is status post CABG back in . Had been doing quite well until this most recent episode. He has a significant history of chronic renal insufficiency with a creatinine of 6. This was managed by the renal physician and there was significant discussion between the specialty and cardiology. It was felt the patient would not be able to tolerate a cardiac catheterization procedure unless the creatinine decreased, and the patient refuses at this time to consider dialysis. He has not had any chest pain in the hospital. Has been managed medically and tolerated this well. Is very alert and oriented answers all questions appropriately and is very cognitive and understands the risk and benefits of not doing further studies. At this time he would like to be treated just medically. We will give his new medications as deemed by cardiology to be appropriate. We will monitor him very closely on an outpatient basis. Appreciate specialties on this case Diagnosis - Discharge Diagnosis (1) Chest pain Status: Acute (2) Chronic renal failure Status: Chronic (3) Unstable angina pectoris Status: Acute Specialty Discharge - Follow Up or Referrals Follow up with: Kyle Richardson MD [Physician] - 1 Month (bmp with mag prior to appt) Deion Doe Jr., MD [Physician] - 2 Weeks Discharge Plan - Discharge Data Disposition: Disch To Home/Self Care Condition at Discharge: Stable Discharge Diet: advance to your usual diet, low salt diet Activity: increase activity as tolerated Hygiene: no restrictions Weight Bearing at Discharge: weight bear as tolerated Driving: no restrictions Contact your physician if you experience:: Shortness of breath, pain uncontrolled by pain medications - Discharge Medications New Carvedilol [Coreg] 25 mg PO BID #60 tablet Isosorbide Mononitrate [Imdur] 30 mg PO DAILY #30 tablet Nitroglycerin Sl Tab [Nitrostat] 0.4 mg SL Q5M PRN #1 bottle PRN Reason: Chest Pain Continue glipiZIDE [Glipizide] 5 mg PO QAM Simvastatin 40 mg PO BEDTIME Lisinopril 40 mg PO QAM Aspirin EC Tab 81 mg PO QAM amLODIPine [Norvasc] 10 mg PO QAM Discontinued Atenolol [Atenolol] 50 mg PO QAM - Follow Up or Referral Follow Up: Kyle Richardson MD [Physician] - 1 Month (bmp with mag prior to appt) Deion Doe Jr., MD [Physician] - 2 Weeks Lukas Can DO [Physician] - 1 Week (tcm) - Forms/Instructions Exam - Constitutional Vitals: Period Temp Pulse Resp BP Sys/Villasenor Pulse Ox Last 24 Hr 97 F-98.3 F 60-73 17-20 119-174/59-82 91-97 Discharge Results Labs on day of discharge: Labs from last 24 hours 07/28/17 07/28/17 07/28/17 11:19 07:22 04:39 WBC RBC Hgb Hct MCV MCH MCHC RDW Plt Count MPV Neut % (Auto) Lymph % (Auto) Nance % (Auto) Eos % (Auto) Baso % (Auto) Neut # (Auto) Lymph # (Auto) Nance # (Auto) Eos # (Auto) Baso # (Auto) Immature Gran % Nucleated RBC % Immature Gran # Nucleated RBCs # Immature Plt Fraction Sodium Potassium Chloride Carbon Dioxide Anion Gap BUN Creatinine GFR Calculation BUN/Creatinine Ratio Glucose POC Glucose 115 H 111 H Hemoglobin A1c 6.5 H Calculated Osmolality Calcium Magnesium Troponin I Triglycerides Cholesterol LDL Cholesterol VLDL Cholesterol HDL Cholesterol Heart Disease Risk Ratio 07/28/17 07/28/17 07/28/17 04:39 04:39 04:39 WBC 5.3 RBC 3.26 L Hgb 10.0 L Hct 30.4 L MCV 93.3 MCH 31 MCHC 32.9 RDW 13.7 Plt Count 199 MPV 10.3 Neut % (Auto) 48.7 Lymph % (Auto) 31.6 Nance % (Auto) 14.1 H Eos % (Auto) 4.5 Baso % (Auto) 0.9 H Neut # (Auto) 2.6 Lymph # (Auto) 1.7 Nance # (Auto) 0.8 Eos # (Auto) 0.2 Baso # (Auto) 0.1 Immature Gran % 0.2 Nucleated RBC % 0.0 Immature Gran # 0.01 Nucleated RBCs # 0.00 Immature Plt Fraction 0.0 Sodium 143 Potassium 5.2 H Chloride 114 H Carbon Dioxide 21 Anion Gap 13.2 BUN 44 H Creatinine 5.50 H GFR Calculation 15 BUN/Creatinine Ratio 8.00 Glucose 109 H POC Glucose Hemoglobin A1c Calculated Osmolality 296.0 Calcium 8.1 L Magnesium 2.2 Troponin I 0.182 H D Triglycerides Cholesterol LDL Cholesterol VLDL Cholesterol HDL Cholesterol Heart Disease Risk Ratio 07/28/17 07/27/17 07/27/17 04:39 20:01 15:55 WBC RBC Hgb Hct MCV MCH MCHC RDW Plt Count MPV Neut % (Auto) Lymph % (Auto) Nance % (Auto) Eos % (Auto) Baso % (Auto) Neut # (Auto) Lymph # (Auto) Nance # (Auto) Eos # (Auto) Baso # (Auto) Immature Gran % Nucleated RBC % Immature Gran # Nucleated RBCs # Immature Plt Fraction Sodium Potassium Chloride Carbon Dioxide Anion Gap BUN Creatinine GFR Calculation BUN/Creatinine Ratio Glucose POC Glucose 158 H 114 H Hemoglobin A1c Calculated Osmolality Calcium Magnesium Troponin I Triglycerides 122 Cholesterol 135 LDL Cholesterol 88.0 VLDL Cholesterol 24.4 HDL Cholesterol 25 L Heart Disease Risk Ratio 5.40 DS: Provider Date of admission: 07/26/17 14:58 Primary care physician: . No PCP Attending physician on admission: Lukas Can DO Consults: 07/26/17 15:04 Consult to Case Mgmt/Social Srvs [CONS] Routine Reason for Case Mgmt/Social Srvs: Discharge Planning Consult to Physician [CONS] Routine Comment: Consulting Provider: Deion Doe Jr. Consult to Specialist Group: Nephrology Person Notified: Pasquale Date Notified: 07/27/17 Time Notified: 08:50 Consult to Physician [CONS] Routine Comment: Chest pain Consulting Provider: Kyle Richardson Consult to Specialist Group: Cardiology Person Notified: Estela Date Notified: 07/27/17 Time Notified: 08:00 07/27/17 10:01 Consult to Physician [CONS] Routine Comment: CRF, pt. known to Dr. Doe, possibly needs [facility] Consulting Provider: Kyle Richardson Consult to Specialist Group: Nephrology Discharging clinician: Lukas Can DO
--- NOTE | 2017-07-28 14:10 | Nephrology Progress Note ---
Nephrology - PN: Subj Interval history: Patient is doing acceptable. Serum creatinine is 5.5. From a standpoint stable to be discharged home from a nephrology standpoint. Will follow patient in 2 weeks. Exam (PN)-Nephrology - Vital Signs Vital signs: Period Temp Pulse Resp BP Sys/Villasenor Pulse Ox Last 24 Hr 97 F-98.3 F 60-73 17-20 119-174/59-82 91-97 - General Appearance General appearance: well-developed, well-nourished EENT: ATNC Neck: supple Respiratory: clear Cardiology: regular rate, regular rhythm Gastrointestinal: normoactive bowel sounds Integumentary: no rash Neurologic: alert and oriented x3, CN 3-12 intact Musculoskeletal: no deformities Psychiatric: mood/affect appropriate, cooperative - Lab 07/28/17 04:39 07/28/17 04:39 Most recent lab results Calcium 8.1 MG/DL (8.5-10.1) L 07/28/17 04:39 Magnesium 2.2 MG/DL (1.8-2.4) 07/28/17 04:39 Assessment and Plan (1) Hypertension Status: Chronic Current Visit: Yes Qualifiers: Hypertension type: essential hypertension Qualified Code(s): I10 - Essential (primary) hypertension (2) Dyslipidemia Status: Chronic Current Visit: Yes (3) Chronic renal disease, stage IV Status: Chronic Assessment and plan: Protect left arm from blood pressure and blood draws. Avoid nephrotoxic agents. The patient has been resistant about preparing for dialysis. He is agreeable to follow me in 2 weeks. Current Visit: Yes (4) Diabetes type 2, controlled Status: Chronic Current Visit: Yes Qualifiers: Diabetes mellitus complication status: with kidney complications Diabetes mellitus complication detail: with chronic kidney disease Chronic kidney disease stage: stage 4 (severe) (5) Unstable angina pectoris Status: Acute Current Visit: Yes Specialty Discharge - Follow Up or Referrals Follow up with: Kyle Richardson MD [Physician] - 1 Month (Someone from our facility will call you Monday and give you your appt date & time. (The offices closed early today. )) Deion Doe Jr., MD [Physician] - 08/23/17 11:00 am Lukas Can DO [Physician] - 1 Week (Someone from our facility will call you Lacey and give you your appt date & time. (The offices closed early today. ))
== END 2017-07-28 14:42 | disposition home or self-care (01) ==
LOC: N.ED 12:35 → N.EDINP 12:35 → N.TELEN 16:31
PROVIDERS: ADMIT Family Medicine; ATTEND Family Medicine

== ENCOUNTER 2019-07-01 07:44 | Inpatient (IN) ==
[2019-07-01] MEDS ORDERED: ASPIRIN 325 MG TABLET PO STA (07:53)
[2019-07-01 08:15] LABS: Basophils # 0.1 10*3/uL (0.0-0.2); Basophils % 0.7 % (0.0-0.8); Eosinophils # 0.2 10*3/uL (0.0-0.87); Eosinophils % 2.4 % (0.00-10.9); Hematocrit 32.8 VOL% (42.0-52.0); Hemoglobin 10.1 GM/DL (14.0-18.0); Immature Granulocytes % 0.4 %; Immature Granulocytes Absolute 0.03 #; Lymphocytes # 1.8 10*3/uL (1.4-4.0); Mean Corpuscular HGB Conc 30.8 GM/DL (32-36); Mean Corpuscular Volume 97.6 FL (87-102); Mean Platelet Volume 9.9 FL (9.6-12.0); Monocytes % 10.1 % (1.7-12.7); Neutrophils % 59.4 % (38.7-73.9); Platelet Count 221 T/CUMM (130-400); Red Blood Count 3.36 MC/CUMM (3.8-5.5); Red Cell Distribution Width 14.1 % (9.3-17.3); White Blood Count 6.7 T/CUMM (4-12)
[2019-07-01 08:26] LABS: PT Patient Result 10.5 SECS; Partial Thromboplastin Time 26.2 SECS (0-40)
[2019-07-01 08:35] LABS: Alanine Aminotransferase 14 U/L (16-61); Albumin 3.9 G/DL (3.4-5.0); Alkaline Phosphatase 84 U/L (45-117); Aspartate Amino Transferase 13 U/L (0-37); Bilirubin,Total < 0.39 MG/DL (0.2-1.0); Blood Urea Nitrogen 57 MG/DL (7-18); Calcium 7.1 MG/DL (8.5-10.1); Glucose 136 MG/DL (74-106); Osmolality,Calculated 298.3 MOS/KG (273-304); Total Protein 8.1 G/DL (6.4-8.3)
[2019-07-01] MEDS ORDERED: ASPIRIN CHEW 81 MG TABLET PO STA (09:07)
[2019-07-01] MEDS ORDERED: ONDANSETRON 4 MG/2 ML VIAL IV PRN (09:34)
[2019-07-01] MEDS ORDERED: MAGNESIUM SULF RIDER 2 GM in PREMIX 1 EACH IV PRN (09:34)
[2019-07-01] MEDS ORDERED: MAGNESIUM SULF RIDER 4 GM in PREMIX 1 EACH IV PRN (09:34)
[2019-07-01] MEDS ORDERED: DEXTROSE 10% 25 GM/250 ML BAG IV PRN (09:34)
[2019-07-01] MEDS ORDERED: GLUCAGON 1 MG VIAL IM PRN (09:34)
[2019-07-01 09:44] LABS: Apearance,Urine CLEAR (Clear); Bacteria,Urine Occasional /HPF (Few); Bilirubin,Urine Negative (Negative); Blood, Urine Small mg/dL (Negative); Glucose,Urine (UA) 50 mg/dL (Negative); Ketones,Urine Negative (Negative); Nitrite,Urine Negative (Negative); Protein,Urine >=500 MG/DL; RBC,Urine 1 /HPF (0-4); Squamous Epithelial Cell,Urine Occasional /HPF (0-10); Urine Color Yellow (Yellow); Urine Urobilinogen < 2.0 EU/DL (0.2-1.0); WBC,Urine 7 /HPF (0-6)
[2019-07-01 10:04] LABS: Risk Ratio 4.74; VLDL CHOLESTEROL 23.2 MG/DL
[2019-07-01] MEDS: ENOXAPARIN 30 MG/0.3 ML SYRINGE SUBCUT SCH (11:22)
[2019-07-01] MEDS ORDERED: hydrALAZINE 20 MG/1 ML VIAL IV STA (11:39)
[2019-07-01] MEDS: INSULIN LISPRO 100 UNIT/ML SUBCUT SCH ×3 (12:02→21:22)
[2019-07-01] MEDS: SODIUM BICARBONATE 650 MG TABLET PO SCH ×2 (16:06→21:19)
[2019-07-01] MEDS: hydrALAZINE 20 MG/1 ML VIAL IV PRN (16:08)
[2019-07-01] MEDS: MORPHINE 4 MG/1 ML VIAL IV PRN (18:02)
[2019-07-01] MEDS ORDERED: MORPHINE 4 MG/1 ML VIAL IV ONE (19:44)
[2019-07-01] MEDS ORDERED: ALUM/MAG/SIMETH/LIDO VISC 1:1 30 ML BOTTLE PO ONE (19:44)
[2019-07-01] MEDS: NITROGLYCERIN 2% OINT 1 INCH/GM PACK TOP SCH (20:04)
[2019-07-01] MEDS: CARVEDILOL 25 MG TABLET PO SCH (21:19)
[2019-07-01] MEDS: RANOLAZINE 500 MG TABLET PO SCH (21:19)
[2019-07-02] MEDS: NITROGLYCERIN 2% OINT 1 INCH/GM PACK TOP SCH ×4 (01:25→18:38)
[2019-07-02] MEDS ORDERED: diphenhydrAMINE CAP 25 MG CAPSULE PO ONE (08:43)
[2019-07-02] MEDS ORDERED: DIAZEPAM 5 MG TABLET PO ONE (08:43)
[2019-07-02] MEDS: SODIUM BICARB INJ 50 MEQ in SODIUM CHLORIDE 0.45% 1,000 ML IV SCH ×2 (08:47→20:56)
[2019-07-02] MEDS: ENOXAPARIN 30 MG/0.3 ML SYRINGE SUBCUT SCH (09:02)
[2019-07-02] MEDS: ISOSORBIDE MONONITRATE 60 MG TABLET PO SCH (09:02)
[2019-07-02] MEDS: CARVEDILOL 25 MG TABLET PO SCH ×2 (09:02→20:55)
[2019-07-02] MEDS: SODIUM BICARBONATE 650 MG TABLET PO SCH ×3 (09:02→20:55)
[2019-07-02] MEDS: ACETYLCYSTEINE 600 MG CAPSULE PO SCH ×3 (09:02→20:55)
[2019-07-02] MEDS: ASPIRIN EC 325 MG TABLET PO SCH (09:02)
[2019-07-02] MEDS: INSULIN LISPRO 100 UNIT/ML SUBCUT SCH ×4 (09:10→20:56)
[2019-07-02] MEDS: glipiZIDE 5 MG TABLET PO SCH (09:11)
[2019-07-02] MEDS: SIMVASTATIN 40 MG TABLET PO SCH (09:11)
[2019-07-02] MEDS ORDERED: LIDOCAINE 1% 20 ML VIAL ONE (12:05)
[2019-07-02] MEDS ORDERED: HEPARIN/NACL 0.9% 2 UNITS/ML 1,000 ML IV ONE (12:05)
[2019-07-02] MEDS ORDERED: NITROGLYCERIN DRIP 50 MG/250 ML BOTTLE IV ONE (12:40)
[2019-07-02] MEDS ORDERED: VERAPAMIL 5 MG/2 ML VIAL ONE (12:40)
[2019-07-02] MEDS ORDERED: MIDAZOLAM 2 MG/2 ML VIAL ONE (13:16)
[2019-07-02] MEDS ORDERED: HYDROmorphone 2 MG/1 ML VIAL ONE (13:16)
[2019-07-02] MEDS: RANOLAZINE 500 MG TABLET PO SCH (20:55)
[2019-07-03] MEDS: NITROGLYCERIN 2% OINT 1 INCH/GM PACK TOP SCH ×4 (01:32→18:58)
[2019-07-03 05:02] LABS: Basophils % 0.5 % (0.0-0.8); Eosinophils # 0.2 10*3/uL (0.0-0.87); Hematocrit 32.4 VOL% (42.0-52.0); Hemoglobin 9.9 GM/DL (14.0-18.0); Immature Granulocytes % 0.5 %; Immature Granulocytes Absolute 0.04 #; Lymphocytes # 1.2 10*3/uL (1.4-4.0); Lymphocytes % 15.9 % (21.2-54.2); Mean Corpuscular HGB Conc 30.6 GM/DL (32-36); Mean Corpuscular Volume 98.2 FL (87-102); Mean Platelet Volume 10.5 FL (9.6-12.0); Monocytes % 12.1 % (1.7-12.7); Platelet Count 191 T/CUMM (130-400); Red Cell Distribution Width 14.2 % (9.3-17.3); White Blood Count 7.6 T/CUMM (4-12)
[2019-07-03 05:37] LABS: Calcium 6.8 MG/DL (8.5-10.1)
[2019-07-03] MEDS ORDERED: SODIUM POLYSTYRENE SULFATE 15 GM/60 ML BOTTLE PO ONE (06:49)
[2019-07-03] MEDS: ALLOPURINOL 100 MG TABLET PO SCH (08:32)
[2019-07-03] MEDS: ACETYLCYSTEINE 600 MG CAPSULE PO SCH ×2 (08:32→21:51)
[2019-07-03] MEDS: SODIUM BICARBONATE 650 MG TABLET PO SCH ×3 (08:32→21:51)
[2019-07-03] MEDS: ISOSORBIDE MONONITRATE 60 MG TABLET PO SCH (08:32)
[2019-07-03] MEDS: glipiZIDE 5 MG TABLET PO SCH (08:33)
[2019-07-03] MEDS: SIMVASTATIN 40 MG TABLET PO SCH (08:33)
[2019-07-03] MEDS: CARVEDILOL 25 MG TABLET PO SCH ×2 (08:33→21:51)
[2019-07-03] MEDS: ASPIRIN EC 325 MG TABLET PO SCH (08:33)
[2019-07-03] MEDS: INSULIN LISPRO 100 UNIT/ML SUBCUT SCH ×4 (08:37→21:51)
[2019-07-03] MEDS: ENOXAPARIN 30 MG/0.3 ML SYRINGE SUBCUT SCH (10:18)
[2019-07-03] MEDS: NEOMYCIN/POLYMYXIN/BACITRACIN OINT 0.9 GM PACK TOP SCH (10:23)
[2019-07-03] MEDS ORDERED: CEFUROXIME INJ 1,500 MG in SODIUM CHLORIDE 0.9% 100 ML IV ONE (10:53)
[2019-07-03] MEDS ORDERED: ceFAZolin 1,000 MG in SYRINGE 1 EACH IV ONE (13:23)
[2019-07-03 15:20] LABS: Hepatitis B Core IgM Quant < 0.05 Index; Hepatitis B Surface Ag Quant < 0.10 Index; Hepatitis B Surface Ag Result Negative (Negative); Hepatitis C Virus Ab Quant < 0.02 Index; Hepatitis C Virus Ab Result Negative (Negative)
[2019-07-03] MEDS: hydrALAZINE 20 MG/1 ML VIAL IV PRN (16:31)
[2019-07-03] MEDS: NITROGLYCERIN SL 0.4 MG TABLET SL PRN ×2 (18:38→19:45)
[2019-07-03] MEDS: MORPHINE 4 MG/1 ML VIAL IV PRN (18:44)
[2019-07-03] MEDS: RANOLAZINE 500 MG TABLET PO SCH (21:50)
[2019-07-04] MEDS: NITROGLYCERIN 2% OINT 1 INCH/GM PACK TOP SCH ×3 (00:41→18:21)
[2019-07-04 05:19] LABS: Basophils % 0.5 % (0.0-0.8); Eosinophils # 0.1 10*3/uL (0.0-0.87); Eosinophils % 1.2 % (0.00-10.9); Hematocrit 29.5 VOL% (42.0-52.0); Hemoglobin 9.3 GM/DL (14.0-18.0); Immature Granulocytes % 0.5 %; Immature Granulocytes Absolute 0.04 #; Lymphocytes # 1.5 10*3/uL (1.4-4.0); Lymphocytes % 18.8 % (21.2-54.2); Mean Corpuscular HGB Conc 31.5 GM/DL (32-36); Mean Platelet Volume 10.6 FL (9.6-12.0); Monocytes % 18.6 % (1.7-12.7); Neutrophils % 60.4 % (38.7-73.9); Platelet Count 184 T/CUMM (130-400); Red Blood Count 3.04 MC/CUMM (3.8-5.5); Red Cell Distribution Width 14.2 % (9.3-17.3); White Blood Count 8.2 T/CUMM (4-12)
[2019-07-04 05:51] LABS: Eosinophils 3 % (0-10); Hypochromasia 1+; Lymphocytes 15 % (20-55); Platelet Estimate Adequate; Segmented Neutrophils 64 % (50-85); Total Cells Counted 100
[2019-07-04 06:02] LABS: Calcium 6.5 MG/DL (8.5-10.1); Osmolality,Calculated 304.7 MOS/KG (273-304)
[2019-07-04] MEDS ORDERED: SODIUM CHLORIDE 0.9% 250 ML IV SCH (07:30)
[2019-07-04] MEDS: CARVEDILOL 25 MG TABLET PO SCH ×2 (13:22→22:36)
[2019-07-04] MEDS: ASPIRIN EC 325 MG TABLET PO SCH (13:23)
[2019-07-04] MEDS: glipiZIDE 5 MG TABLET PO SCH (13:23)
[2019-07-04] MEDS: SODIUM BICARBONATE 650 MG TABLET PO SCH ×4 (13:23→22:37)
[2019-07-04] MEDS: ISOSORBIDE MONONITRATE 60 MG TABLET PO SCH (13:24)
[2019-07-04] MEDS: SIMVASTATIN 40 MG TABLET PO SCH (13:25)
[2019-07-04] MEDS: ALLOPURINOL 100 MG TABLET PO SCH (13:25)
[2019-07-04] MEDS: ENOXAPARIN 30 MG/0.3 ML SYRINGE SUBCUT SCH (13:26)
[2019-07-04] MEDS: ACETYLCYSTEINE 600 MG CAPSULE PO SCH ×2 (13:28→22:36)
[2019-07-04] MEDS: INSULIN LISPRO 100 UNIT/ML SUBCUT SCH ×4 (13:31→22:00)
[2019-07-04] MEDS: NEOMYCIN/POLYMYXIN/BACITRACIN OINT 0.9 GM PACK TOP SCH (13:31)
[2019-07-04] MEDS: RANOLAZINE 500 MG TABLET PO SCH (22:37)
[2019-07-05] MEDS: NITROGLYCERIN 2% OINT 1 INCH/GM PACK TOP SCH ×4 (01:46→13:23)
[2019-07-05] MEDS: SIMVASTATIN 40 MG TABLET PO SCH (08:57)
[2019-07-05] MEDS: INSULIN LISPRO 100 UNIT/ML SUBCUT SCH ×4 (08:57→22:45)
[2019-07-05] MEDS: glipiZIDE 5 MG TABLET PO SCH (08:57)
[2019-07-05] MEDS: ACETYLCYSTEINE 600 MG CAPSULE PO SCH ×2 (08:58→22:46)
[2019-07-05] MEDS: ASPIRIN EC 325 MG TABLET PO SCH (08:58)
[2019-07-05] MEDS: ISOSORBIDE MONONITRATE 60 MG TABLET PO SCH (08:58)
[2019-07-05] MEDS: ALLOPURINOL 100 MG TABLET PO SCH (08:58)
[2019-07-05] MEDS: SODIUM BICARBONATE 650 MG TABLET PO SCH ×3 (08:58→22:46)
[2019-07-05] MEDS: CARVEDILOL 25 MG TABLET PO SCH ×2 (08:58→22:45)
[2019-07-05 10:36] LABS: Basophils % 0.5 % (0.0-0.8); Eosinophils # 0.1 10*3/uL (0.0-0.87); Eosinophils % 0.9 % (0.00-10.9); Hemoglobin 8.9 GM/DL (14.0-18.0); Immature Granulocytes % 0.4 %; Immature Granulocytes Absolute 0.03 #; Lymphocytes # 1.3 10*3/uL (1.4-4.0); Lymphocytes % 17.4 % (21.2-54.2); Mean Corpuscular HGB Conc 31.8 GM/DL (32-36); Mean Corpuscular Volume 95.9 FL (87-102); Mean Platelet Volume 10.5 FL (9.6-12.0); Monocytes % 11.2 % (1.7-12.7); Neutrophils % 69.6 % (38.7-73.9); Platelet Count 176 T/CUMM (130-400); Red Blood Count 2.92 MC/CUMM (3.8-5.5); White Blood Count 7.5 T/CUMM (4-12)
[2019-07-05] MEDS: NEOMYCIN/POLYMYXIN/BACITRACIN OINT 0.9 GM PACK TOP SCH (10:49)
[2019-07-05 10:56] LABS: Osmolality,Calculated 289.5 MOS/KG (273-304)
[2019-07-05] MEDS: ENOXAPARIN 30 MG/0.3 ML SYRINGE SUBCUT SCH (13:25)
[2019-07-05] MEDS ORDERED: HEPARIN 10,000 UNIT/10 ML VIAL IV SCH (14:30)
[2019-07-05] MEDS: RANOLAZINE 500 MG TABLET PO SCH (22:46)
[2019-07-05] MEDS: ASCORBIC ACID 500 MG TABLET PO SCH (22:47)
[2019-07-06 05:09] LABS: Basophils % 0.5 % (0.0-0.8); Eosinophils # 0.2 10*3/uL (0.0-0.87); Eosinophils % 2.5 % (0.00-10.9); Hematocrit 27.1 VOL% (42.0-52.0); Hemoglobin 8.6 GM/DL (14.0-18.0); Immature Granulocytes % 0.5 %; Immature Granulocytes Absolute 0.04 #; Lymphocytes # 1.7 10*3/uL (1.4-4.0); Lymphocytes % 19.9 % (21.2-54.2); Mean Corpuscular HGB Conc 31.7 GM/DL (32-36); Mean Corpuscular Volume 96.4 FL (87-102); Mean Platelet Volume 11.1 FL (9.6-12.0); Monocytes % 15.2 % (1.7-12.7); Neutrophils % 61.4 % (38.7-73.9); Platelet Count 171 T/CUMM (130-400); Red Blood Count 2.81 MC/CUMM (3.8-5.5); Red Cell Distribution Width 13.8 % (9.3-17.3); White Blood Count 8.8 T/CUMM (4-12)
[2019-07-06 05:43] LABS: Osmolality,Calculated 289.4 MOS/KG (273-304)
[2019-07-06 06:05] LABS: Calcium 6.7 MG/DL (8.5-10.1)
[2019-07-06] MEDS: INSULIN LISPRO 100 UNIT/ML SUBCUT SCH ×4 (07:40→21:17)
[2019-07-06] MEDS: ISOSORBIDE MONONITRATE 60 MG TABLET PO SCH (08:23)
[2019-07-06] MEDS: CARVEDILOL 25 MG TABLET PO SCH ×2 (08:23→21:17)
[2019-07-06] MEDS: ACETYLCYSTEINE 600 MG CAPSULE PO SCH ×2 (08:23→21:16)
[2019-07-06] MEDS: ASPIRIN EC 325 MG TABLET PO SCH (08:23)
[2019-07-06] MEDS: SODIUM BICARBONATE 650 MG TABLET PO SCH ×3 (08:23→21:17)
[2019-07-06] MEDS: glipiZIDE 5 MG TABLET PO SCH (08:24)
[2019-07-06] MEDS: SIMVASTATIN 40 MG TABLET PO SCH (08:24)
[2019-07-06] MEDS: ALLOPURINOL 100 MG TABLET PO SCH (08:24)
[2019-07-06] MEDS: ASCORBIC ACID 500 MG TABLET PO SCH ×2 (08:24→21:17)
[2019-07-06] MEDS: NEOMYCIN/POLYMYXIN/BACITRACIN OINT 0.9 GM PACK TOP SCH (08:27)
[2019-07-06] MEDS: ENOXAPARIN 30 MG/0.3 ML SYRINGE SUBCUT SCH (12:49)
[2019-07-06] MEDS: RANOLAZINE 500 MG TABLET PO SCH (21:16)
[2019-07-07 04:00] LABS: Basophils # 0.1 10*3/uL (0.0-0.2); Basophils % 0.6 % (0.0-0.8); Eosinophils # 0.2 10*3/uL (0.0-0.87); Hemoglobin 8.7 GM/DL (14.0-18.0); Immature Granulocytes % 0.4 %; Immature Granulocytes Absolute 0.03 #; Lymphocytes # 1.8 10*3/uL (1.4-4.0); Lymphocytes % 23.4 % (21.2-54.2); Mean Corpuscular HGB Conc 31.1 GM/DL (32-36); Mean Corpuscular Volume 96.2 FL (87-102); Mean Platelet Volume 10.4 FL (9.6-12.0); Monocytes % 13.7 % (1.7-12.7); Neutrophils % 58.9 % (38.7-73.9); Platelet Count 206 T/CUMM (130-400); Red Blood Count 2.91 MC/CUMM (3.8-5.5); Red Cell Distribution Width 13.5 % (9.3-17.3); White Blood Count 7.9 T/CUMM (4-12)
[2019-07-07 04:22] LABS: Calcium 7.1 MG/DL (8.5-10.1); Osmolality,Calculated 284.7 MOS/KG (273-304)
[2019-07-07] MEDS: INSULIN LISPRO 100 UNIT/ML SUBCUT SCH ×4 (08:37→21:35)
[2019-07-07] MEDS: SODIUM BICARBONATE 650 MG TABLET PO SCH ×3 (08:59→21:34)
[2019-07-07] MEDS: ALLOPURINOL 100 MG TABLET PO SCH (08:59)
[2019-07-07] MEDS: ASPIRIN EC 325 MG TABLET PO SCH (09:00)
[2019-07-07] MEDS: ACETYLCYSTEINE 600 MG CAPSULE PO SCH ×2 (09:01→21:34)
[2019-07-07] MEDS: ISOSORBIDE MONONITRATE 60 MG TABLET PO SCH (09:01)
[2019-07-07] MEDS: ASCORBIC ACID 500 MG TABLET PO SCH ×2 (09:01→21:34)
[2019-07-07] MEDS: SIMVASTATIN 40 MG TABLET PO SCH (09:01)
[2019-07-07] MEDS: glipiZIDE 5 MG TABLET PO SCH (09:01)
[2019-07-07] MEDS: CARVEDILOL 25 MG TABLET PO SCH ×2 (09:09→21:35)
[2019-07-07] MEDS: NEOMYCIN/POLYMYXIN/BACITRACIN OINT 0.9 GM PACK TOP SCH (09:09)
[2019-07-07] MEDS: ENOXAPARIN 30 MG/0.3 ML SYRINGE SUBCUT SCH (10:16)
[2019-07-07] MEDS: RANOLAZINE 500 MG TABLET PO SCH (21:34)
[2019-07-08 04:45] LABS: Basophils # 0.1 10*3/uL (0.0-0.2); Basophils % 0.7 % (0.0-0.8); Eosinophils # 0.3 10*3/uL (0.0-0.87); Hematocrit 26.7 VOL% (42.0-52.0); Hemoglobin 8.3 GM/DL (14.0-18.0); Immature Granulocytes % 0.3 %; Immature Granulocytes Absolute 0.02 #; Lymphocytes # 1.9 10*3/uL (1.4-4.0); Lymphocytes % 27.8 % (21.2-54.2); Mean Corpuscular HGB Conc 31.1 GM/DL (32-36); Mean Platelet Volume 10.7 FL (9.6-12.0); Monocytes % 12.8 % (1.7-12.7); Neutrophils % 54.4 % (38.7-73.9); Platelet Count 198 T/CUMM (130-400); Red Blood Count 2.78 MC/CUMM (3.8-5.5); Red Cell Distribution Width 13.2 % (9.3-17.3); White Blood Count 6.8 T/CUMM (4-12)
[2019-07-08 05:18] LABS: Calcium 6.5 MG/DL (8.5-10.1); Osmolality,Calculated 292.7 MOS/KG (273-304)
[2019-07-08] MEDS: SIMVASTATIN 40 MG TABLET PO SCH (09:11)
[2019-07-08] MEDS: SODIUM BICARBONATE 650 MG TABLET PO SCH ×3 (09:11→22:06)
[2019-07-08] MEDS: INSULIN LISPRO 100 UNIT/ML SUBCUT SCH ×4 (09:11→22:07)
[2019-07-08] MEDS: ENOXAPARIN 30 MG/0.3 ML SYRINGE SUBCUT SCH (09:12)
[2019-07-08] MEDS: ASCORBIC ACID 500 MG TABLET PO SCH ×2 (09:12→22:07)
[2019-07-08] MEDS: ISOSORBIDE MONONITRATE 60 MG TABLET PO SCH (09:12)
[2019-07-08] MEDS: ACETYLCYSTEINE 600 MG CAPSULE PO SCH ×2 (09:12→22:07)
[2019-07-08] MEDS: ALLOPURINOL 100 MG TABLET PO SCH (09:12)
[2019-07-08] MEDS: ASPIRIN EC 325 MG TABLET PO SCH (09:12)
[2019-07-08] MEDS: glipiZIDE 5 MG TABLET PO SCH (09:12)
[2019-07-08] MEDS: CARVEDILOL 25 MG TABLET PO SCH ×2 (09:12→22:07)
[2019-07-08] MEDS: NEOMYCIN/POLYMYXIN/BACITRACIN OINT 0.9 GM PACK TOP SCH (09:15)
[2019-07-08] MEDS: RANOLAZINE 500 MG TABLET PO SCH (22:07)
[2019-07-09] MEDS: SIMVASTATIN 40 MG TABLET PO SCH (08:56)
[2019-07-09] MEDS: ALLOPURINOL 100 MG TABLET PO SCH (08:56)
[2019-07-09] MEDS: glipiZIDE 5 MG TABLET PO SCH (08:56)
[2019-07-09] MEDS: ISOSORBIDE MONONITRATE 60 MG TABLET PO SCH (08:56)
[2019-07-09] MEDS: ACETYLCYSTEINE 600 MG CAPSULE PO SCH ×2 (08:56→20:56)
[2019-07-09] MEDS: SODIUM BICARBONATE 650 MG TABLET PO SCH ×3 (08:57→20:56)
[2019-07-09] MEDS: CARVEDILOL 25 MG TABLET PO SCH ×2 (08:57→20:56)
[2019-07-09] MEDS: ASCORBIC ACID 500 MG TABLET PO SCH ×2 (08:57→20:55)
[2019-07-09] MEDS: ASPIRIN EC 325 MG TABLET PO SCH (08:57)
[2019-07-09] MEDS ORDERED: LACTULOSE 20 GM/30 ML UDCUP PO ONE (09:00)
[2019-07-09] MEDS: NEOMYCIN/POLYMYXIN/BACITRACIN OINT 0.9 GM PACK TOP SCH (09:01)
[2019-07-09] MEDS: INSULIN LISPRO 100 UNIT/ML SUBCUT SCH ×4 (09:35→20:56)
[2019-07-09] MEDS: ENOXAPARIN 30 MG/0.3 ML SYRINGE SUBCUT SCH (13:13)
[2019-07-09] MEDS: SODIUM CHLORIDE 0.9% 1,000 ML IV SCH (14:42)
[2019-07-09] MEDS: CHLORHEXIDINE 4% SOLN 118 ML BOTTLE TOP SCH ×2 (14:43→20:56)
[2019-07-09] MEDS: CHLORHEXIDINE 0.12% ORAL RINSE 60 ML BOTTLE SWISH/SPIT SCH (20:56)
[2019-07-09] MEDS: RANOLAZINE 500 MG TABLET PO SCH (20:56)
[2019-07-10] MEDS ORDERED: TISSUE ADHESIVE 1 EACH APPLICATOR TOP ONE (04:24)
[2019-07-10] MEDS ORDERED: PAPAVERINE 60 MG/2 ML VIAL ONE (04:24)
[2019-07-10] MEDS ORDERED: VANCOMYCIN 1,000 MG VIAL ONE (04:25)
[2019-07-10] MEDS ORDERED: CEFUROXIME INJ 1,500 MG in SYRINGE 1 EACH IV ONE (05:00)
[2019-07-10] MEDS: CHLORHEXIDINE 4% SOLN 118 ML BOTTLE TOP SCH ×2 (05:20→09:43)
[2019-07-10] MEDS ORDERED: PHENYLEPHRINE DRIP 20 MG/250 ML PREMIX IV ONE (05:22)
[2019-07-10] MEDS ORDERED: ETOMIDATE 40 MG/20 ML VIAL IV ONE (05:23)
[2019-07-10] MEDS ORDERED: VECURONIUM 10 MG VIAL IV ONE (05:23)
[2019-07-10] MEDS ORDERED: MIDAZOLAM 10 MG/2 ML VIAL ONE (05:23)
[2019-07-10] MEDS ORDERED: NITROGLYCERIN DRIP 50 MG/250 ML BOTTLE IV ONE (05:24)
[2019-07-10] MEDS ORDERED: HEPARIN/NACL 0.9% 2 UNITS/ML 500 ML IV ONE (05:25)
[2019-07-10] MEDS ORDERED: AMINOCAPROIC ACID 5,000 MG/20 ML VIAL ONE (05:25)
[2019-07-10] MEDS ORDERED: SODIUM CHLORIDE 0.9% 2,000 ML IV ONE (05:25)
[2019-07-10] MEDS ORDERED: SODIUM CHLORIDE 0.9% 250 ML IV ONE ×2 (05:25→05:26)
[2019-07-10] MEDS ORDERED: CALCIUM CHLORIDE 1,000 MG/10 ML VIAL IV ONE ×2 (05:25→11:59)
[2019-07-10] MEDS ORDERED: EPINEPHrine 1 MG/ML VIAL ONE (05:26)
[2019-07-10] MEDS: ISOSORBIDE MONONITRATE 60 MG TABLET PO SCH ×2 (06:07→09:43)
[2019-07-10] MEDS: CARVEDILOL 25 MG TABLET PO SCH ×2 (06:07→09:43)
[2019-07-10 06:46] LABS: Basophils % 0.6 % (0.0-0.8); Eosinophils # 0.3 10*3/uL (0.0-0.87); Hematocrit 29.1 VOL% (42.0-52.0); Hemoglobin 9.2 GM/DL (14.0-18.0); Immature Granulocytes % 0.4 %; Immature Granulocytes Absolute 0.03 #; Lymphocytes # 1.7 10*3/uL (1.4-4.0); Lymphocytes % 23.2 % (21.2-54.2); Mean Corpuscular HGB Conc 31.6 GM/DL (32-36); Mean Platelet Volume 9.6 FL (9.6-12.0); Monocytes % 14.4 % (1.7-12.7); Neutrophils % 57.4 % (38.7-73.9); Platelet Count 219 T/CUMM (130-400); Red Cell Distribution Width 13.2 % (9.3-17.3); White Blood Count 7.2 T/CUMM (4-12)
[2019-07-10 07:05] LABS: Alanine Aminotransferase < 9 U/L (16-61); Alkaline Phosphatase 73 U/L (45-117); Aspartate Amino Transferase 14 U/L (0-37); Blood Urea Nitrogen 47 MG/DL (7-18); Calcium 7.1 MG/DL (8.5-10.1); Glucose 128 MG/DL (74-106); Osmolality,Calculated 294.3 MOS/KG (273-304); Total Protein 7.3 G/DL (6.4-8.3)
[2019-07-10 08:46] LABS: ABG Base Excess -1.1 MMOL/L (-2.5-2.5); ABG HCO3 23.5 MMOL/L (20-26); ABG Oxygen Saturation 98.3 % (95-100); ABG PCO2 38.1 MM HG (35-48); ABG PH 7.397 (7.35-7.45); ABG TCO2 21.8 MMOL/L (23-27); Glucose Heart Surgery 135 MG/DL (74-106); Hematocrit Heart Surgery 26.3 PERCENT (42-52); Hemoglobin Heart Surgery 8.5 G/DL (14.0-18.0); Ionized Calcium Arterial 0.85 MMOL/L (1.21-1.46); PCO2 Patient Temp Arterial 38.1 MMHG; PH Patient Temp Arterial 7.397; Patient Temperature 37 CELCIUS; Potassium Heart/CVR 5.5 MMOL/L (3.5-5.1); Sodium Heart/CVR 136 MMOL/L (135-145)
[2019-07-10 09:33] LABS: Apearance,Urine CLEAR (Clear); Bilirubin,Urine Negative (Negative); Blood, Urine Negative (Negative); Glucose,Urine (UA) Negative (Negative); Ketones,Urine Negative (Negative); Nitrite,Urine Negative (Negative); Protein,Urine 100 MG/DL; RBC,Urine 1 /HPF (0-4); Squamous Epithelial Cell,Urine Occasional /HPF (0-10); Urine Color Yellow (Yellow); Urine Specific Gravity 1.014 (1.001-1.035); Urine Urobilinogen < 2.0 EU/DL (0.2-1.0); WBC,Urine 7 /HPF (0-6)
[2019-07-10] MEDS ORDERED: NITROPRUSSIDE 50 MG/2 ML VIAL ONE (09:36)
[2019-07-10] MEDS ORDERED: POTASSIUM CHLORIDE RIDER 0 ML IV ONE (09:36)
[2019-07-10] MEDS ORDERED: ALBUMIN 5% 12.5 GM/250 ML VIAL IV ONE ×2 (09:37→12:00)
[2019-07-10] MEDS: INSULIN LISPRO 100 UNIT/ML SUBCUT SCH ×2 (09:43→13:39)
[2019-07-10] MEDS: ACETYLCYSTEINE 600 MG CAPSULE PO SCH (09:43)
[2019-07-10] MEDS: ASPIRIN EC 325 MG TABLET PO SCH (09:43)
[2019-07-10] MEDS: glipiZIDE 5 MG TABLET PO SCH (09:43)
[2019-07-10] MEDS: NEOMYCIN/POLYMYXIN/BACITRACIN OINT 0.9 GM PACK TOP SCH (09:44)
[2019-07-10] MEDS: ASCORBIC ACID 500 MG TABLET PO SCH (09:44)
[2019-07-10] MEDS: SODIUM BICARBONATE 650 MG TABLET PO SCH (09:44)
[2019-07-10] MEDS: CHLORHEXIDINE 0.12% ORAL RINSE 60 ML BOTTLE SWISH/SPIT SCH ×2 (09:44→21:33)
[2019-07-10] MEDS: SIMVASTATIN 40 MG TABLET PO SCH (09:44)
[2019-07-10] MEDS: ENOXAPARIN 30 MG/0.3 ML SYRINGE SUBCUT SCH (09:44)
[2019-07-10] MEDS: ALLOPURINOL 100 MG TABLET PO SCH (09:44)
[2019-07-10 10:46] LABS: Hematocrit Heart Surgery 19.1 PERCENT (42-52); Hemoglobin Heart Surgery 6.1 G/DL (14.0-18.0); PCO2 Patient Temp Venous 33.1 MM HG; PH Patient Temp Venous 7.446; PO2 Patient Temp Venous 33.2 MM HG; Potassium Heart/CVR 6.4 MMOL/L (3.5-5.1); VBG Base Excess -0.7 MEQ/L (0-4); VBG HCO3 23.6 MEQ/L (24-28); VBG Oxygen Saturation 74.1 %; VBG PCO2 38.3 MMHG (41-51); VBG PH 7.402; VBG PO2 40.9 MMHG (17-40)
[2019-07-10 11:18] LABS: Hematocrit Heart Surgery 22.3 PERCENT (42-52); Hemoglobin Heart Surgery 7.1 G/DL (14.0-18.0); PCO2 Patient Temp Venous 30.2 MM HG; PH Patient Temp Venous 7.468; PO2 Patient Temp Venous 38.7 MM HG; Potassium Heart/CVR 6.5 MMOL/L (3.5-5.1); VBG Base Excess -1.3 MEQ/L (0-4); VBG HCO3 23.1 MEQ/L (24-28); VBG Oxygen Saturation 82.5 %; VBG PCO2 33.3 MMHG (41-51); VBG PH 7.438; VBG PO2 44.4 MMHG (17-40)
[2019-07-10 11:44] LABS: Hematocrit Heart Surgery 21.9 PERCENT (42-52); PCO2 Patient Temp Venous 36.6 MM HG; PH Patient Temp Venous 7.398; PO2 Patient Temp Venous 36.5 MM HG; Potassium Heart/CVR 5.7 MMOL/L (3.5-5.1); VBG Base Excess -1.9 MEQ/L (0-4); VBG HCO3 22.4 MEQ/L (24-28); VBG Oxygen Saturation 68.6 %; VBG PCO2 36.6 MMHG (41-51); VBG PH 7.398; VBG PO2 36.5 MMHG (17-40)
[2019-07-10] MEDS ORDERED: THROMBIN TOPICAL (RECOMBINANT) 5,000 UNIT VIAL TOP ONE (11:46)
[2019-07-10] MEDS ORDERED: MANNITOL 100 GM/500 ML BAG IV ONE (11:59)
[2019-07-10] MEDS ORDERED: ALBUMIN 25% 25 GM/100 ML VIAL IV ONE (11:59)
[2019-07-10] MEDS ORDERED: SODIUM BICARBONATE 50 MEQ/50 ML VIAL IV ONE (11:59)
[2019-07-10] MEDS ORDERED: DEXTROSE 5% KCL 20 MEQ 20 MEQ/1,000 ML BAG IV ONE (11:59)
[2019-07-10] MEDS ORDERED: methylPREDNISolone SOD SUC 1,000 MG/8 ML VIAL ONE (12:00)
[2019-07-10] MEDS ORDERED: PROTAMINE SULFATE 250 MG/25 ML VIAL IV ONE (12:00)
[2019-07-10] MEDS ORDERED: HEPARIN 10,000 UNIT/10 ML VIAL ONE ×2 (12:00→13:18)
[2019-07-10] MEDS ORDERED: FUROSEMIDE 20 MG/2 ML VIAL ONE (12:00)
[2019-07-10] MEDS ORDERED: MAGNESIUM SULFATE 5 GM/10 ML VIAL IV ONE (12:00)
[2019-07-10 12:02] LABS: ABG Base Excess -1.1 MMOL/L (-2.5-2.5); ABG HCO3 23.5 MMOL/L (20-26); ABG Oxygen Saturation 97.9 % (95-100); ABG PCO2 41.8 MM HG (35-48); ABG PH 7.369 (7.35-7.45); ABG TCO2 22.9 MMOL/L (23-27); Glucose Heart Surgery 204 MG/DL (74-106); Hematocrit Heart Surgery 21.7 PERCENT (42-52); Hemoglobin Heart Surgery 6.9 G/DL (14.0-18.0); PCO2 Patient Temp Arterial 41.8 MMHG; PH Patient Temp Arterial 7.369; Patient Temperature 37 CELCIUS; Potassium Heart/CVR 4.7 MMOL/L (3.5-5.1); Sodium Heart/CVR 136 MMOL/L (135-145)
[2019-07-10] MEDS ORDERED: SEVOFLURANE 1 UNIT/15 MINUTE INH ONE (13:18)
[2019-07-10] MEDS ORDERED: PHENYLEPHRINE 1 MG/10 ML SYRINGE IV ONE (13:19)
[2019-07-10] MEDS ORDERED: SODIUM CHLORIDE 0.9% 100 ML IV ONE (13:19)
[2019-07-10] MEDS ORDERED: SODIUM CHLORIDE 0.9% 1,000 ML IV ONE (13:19)
[2019-07-10] MEDS ORDERED: SUCCINYLCHOLINE 200 MG/10 ML VIAL ONE (13:19)
[2019-07-10] MEDS ORDERED: ePHEDrine 50 MG/ML AMP ONE (13:19)
[2019-07-10] MEDS: SODIUM CHLORIDE 0.9% 250 ML IV PRN ×2 (13:30→17:15)
[2019-07-10] MEDS ORDERED: POTASSIUM CHLORIDE RIDER 10 MEQ in PREMIX 1 EACH IV PRN (13:49)
[2019-07-10] MEDS ORDERED: MAGNESIUM SULF RIDER 4 GM in PREMIX 1 EACH IV PRN (13:49)
[2019-07-10] MEDS ORDERED: MORPHINE 10 MG/1 ML VIAL IV PRN (13:49)
[2019-07-10] MEDS ORDERED: ONDANSETRON 4 MG/2 ML VIAL IV PRN (13:49)
[2019-07-10] MEDS ORDERED: POTASSIUM CHLORIDE RIDER 20 MEQ in PREMIX 1 EACH IV PRN (13:49)
[2019-07-10] MEDS ORDERED: CHLORHEXIDINE 4% SOLN 118 ML BOTTLE TOP PRN (13:49)
[2019-07-10] MEDS ORDERED: MIDAZOLAM 2 MG/2 ML VIAL IV PRN (13:49)
[2019-07-10] MEDS ORDERED: MAGNESIUM SULF RIDER 2 GM in PREMIX 1 EACH IV PRN (13:49)
[2019-07-10] MEDS ORDERED: ALBUMIN 5% 12.5 GM in PREMIX 1 EACH IV PRN (13:49)
[2019-07-10] MEDS ORDERED: CALCIUM CHLORIDE 1,000 MG/10 ML SYRINGE IV PRN (13:49)
[2019-07-10] MEDS ORDERED: ACETAMINOPHEN 650 MG SUPP RECTAL PRN (13:49)
[2019-07-10] MEDS ORDERED: DEXTROSE 50% 25 GM/50 ML VIAL IV PRN ×2 (13:49)
[2019-07-10] MEDS: SODIUM CHLORIDE 0.9% 1,000 ML IV SCH (14:07)
[2019-07-10] MEDS ORDERED: PHENYLEPHRINE DRIP 40 MG/250 ML PREMIX IV PRN (14:09)
[2019-07-10 14:36] LABS: ABG Base Excess -3.1 MMOL/L (-2.5-2.5); ABG HCO3 20.1 MMOL/L (20-26); ABG Oxygen Saturation 96.9 % (95-100); ABG PCO2 29.4 MM HG (35-48); ABG PH 7.453 (7.35-7.45); ABG PO2 97.6 MM HG (80-95); Glucose Heart Surgery 159 MG/DL (74-106); Hemoglobin Heart Surgery 9.5 G/DL (14.0-18.0); Potassium Heart/CVR 4.2 MMOL/L (3.5-5.1)
[2019-07-10] MEDS: INSULIN REGULAR DRIP 100 ML IV SCH (14:38)
[2019-07-10 14:40] LABS: Basophils % 0.3 % (0.0-0.8); Eosinophils % 0.4 % (0.00-10.9); Hematocrit 26.2 VOL% (42.0-52.0); Hemoglobin 8.5 GM/DL (14.0-18.0); Immature Granulocytes % 0.7 %; Immature Granulocytes Absolute 0.07 #; Lymphocytes # 1.2 10*3/uL (1.4-4.0); Lymphocytes % 11.7 % (21.2-54.2); Mean Corpuscular HGB Conc 32.4 GM/DL (32-36); Mean Corpuscular Volume 95.3 FL (87-102); Mean Platelet Volume 10.2 FL (9.6-12.0); Monocytes % 8.4 % (1.7-12.7); Neutrophils % 78.5 % (38.7-73.9); Platelet Count 186 T/CUMM (130-400); Red Blood Count 2.75 MC/CUMM (3.8-5.5); Red Cell Distribution Width 13.3 % (9.3-17.3); White Blood Count 10.4 T/CUMM (4-12)
[2019-07-10 14:49] LABS: INR 1.1; PT Patient Result 12.2 SECS; Partial Thromboplastin Time 27.7 SECS (0-40)
[2019-07-10 14:58] LABS: Calcium 6.7 MG/DL (8.5-10.1); Osmolality,Calculated 296.3 MOS/KG (273-304)
[2019-07-10] MEDS: INSULIN REGULAR 100 UNIT/ML IV PRN ×2 (16:14→19:12)
[2019-07-10] MEDS ORDERED: CALCIUM CHLORIDE 1,000 MG/10 ML SYRINGE IV ONE (17:30)
[2019-07-10] MEDS: CEFUROXIME INJ 1,500 MG in SYRINGE 1 EACH IV SCH (21:33)
[2019-07-11 01:07] LABS: ABG Base Excess -4.9 MMOL/L (-2.5-2.5); ABG HCO3 20.3 MMOL/L (20-26); ABG Oxygen Saturation 94.9 % (95-100); ABG PO2 78.2 MM HG (80-95); ABG TCO2 17.8 MMOL/L (23-27); Glucose Heart Surgery 124 MG/DL (74-106); Hematocrit Heart Surgery 30.5 PERCENT (42-52); Hemoglobin Heart Surgery 9.8 G/DL (14.0-18.0); Potassium Heart/CVR 4.6 MMOL/L (3.5-5.1)
[2019-07-11 03:15] LABS: Basophils % 0.1 % (0.0-0.8); Hematocrit 30.7 VOL% (42.0-52.0); Hemoglobin 9.9 GM/DL (14.0-18.0); Immature Granulocytes % 0.6 %; Immature Granulocytes Absolute 0.09 #; Lymphocytes # 0.6 10*3/uL (1.4-4.0); Lymphocytes % 4.4 % (21.2-54.2); Mean Corpuscular HGB Conc 32.2 GM/DL (32-36); Mean Corpuscular Volume 93.6 FL (87-102); Mean Platelet Volume 10.7 FL (9.6-12.0); Monocytes % 4.9 % (1.7-12.7); Platelet Count 209 T/CUMM (130-400); Red Blood Count 3.28 MC/CUMM (3.8-5.5); Red Cell Distribution Width 13.4 % (9.3-17.3); White Blood Count 14.2 T/CUMM (4-12)
[2019-07-11 03:22] LABS: ABG Base Excess -4.6 MMOL/L (-2.5-2.5); ABG HCO3 20.6 MMOL/L (20-26); ABG Oxygen Saturation 96.1 % (95-100); ABG PCO2 33.7 MM HG (35-48); ABG PH 7.378 (7.35-7.45); ABG PO2 87.4 MM HG (80-95); Glucose Heart Surgery 110 MG/DL (74-106); Hematocrit Heart Surgery 31.3 PERCENT (42-52); Hemoglobin Heart Surgery 10.1 G/DL (14.0-18.0); Potassium Heart/CVR 4.6 MMOL/L (3.5-5.1)
[2019-07-11 03:33] LABS: Osmolality,Calculated 293.3 MOS/KG (273-304)
[2019-07-11 03:56] LABS: Lymphocytes 8 % (20-55); Segmented Neutrophils 88 % (50-85); Total Cells Counted 100
[2019-07-11 03:57] LABS: Hypochromasia 1+; Platelet Estimate Normal
[2019-07-11] MEDS ORDERED: PANTOPRAZOLE 40 MG VIAL IV SCH (09:00)
[2019-07-11] MEDS ORDERED: CARVEDILOL 3.125 MG TABLET PO SCH (09:00)
[2019-07-11] MEDS: FUROSEMIDE 40 MG TABLET PO SCH (09:22)
[2019-07-11] MEDS: CHLORHEXIDINE 0.12% ORAL RINSE 60 ML BOTTLE SWISH/SPIT SCH ×2 (09:22→21:05)
[2019-07-11] MEDS: ASPIRIN EC 325 MG TABLET PO SCH (09:22)
[2019-07-11] MEDS: CLOPIDOGREL 75 MG TABLET PO SCH (09:22)
[2019-07-11] MEDS: CEFUROXIME INJ 1,500 MG in SYRINGE 1 EACH IV SCH ×2 (09:23→21:05)
[2019-07-11] MEDS: INSULIN REGULAR 100 UNIT/ML SUBCUT SCH ×4 (10:52→20:15)
[2019-07-11] MEDS ORDERED: HEPARIN 10,000 UNIT/10 ML VIAL IV PRN (11:46)
[2019-07-11] MEDS: MORPHINE 4 MG/1 ML VIAL IV PRN (14:21)
[2019-07-11] MEDS ORDERED: CARVEDILOL 3.125 MG TABLET PO ONE (14:42)
[2019-07-11] MEDS: INSULIN REGULAR DRIP 100 ML IV SCH (21:00)
[2019-07-11] MEDS: ATORVASTATIN 40 MG TABLET PO SCH (21:05)
[2019-07-11] MEDS: CARVEDILOL 6.25 MG TABLET PO SCH (21:05)
[2019-07-12] MEDS: INSULIN REGULAR 100 UNIT/ML SUBCUT SCH ×6 (00:37→21:50)
[2019-07-12 04:39] LABS: Basophils % 0.2 % (0.0-0.8); Hematocrit 27.8 VOL% (42.0-52.0); Hemoglobin 8.9 GM/DL (14.0-18.0); Immature Granulocytes % 0.7 %; Immature Granulocytes Absolute 0.12 #; Lymphocytes # 1.4 10*3/uL (1.4-4.0); Lymphocytes % 8.8 % (21.2-54.2); Mean Corpuscular Volume 95.2 FL (87-102); Mean Platelet Volume 10.1 FL (9.6-12.0); Monocytes % 12.4 % (1.7-12.7); Neutrophils % 77.9 % (38.7-73.9); Platelet Count 207 T/CUMM (130-400); Red Blood Count 2.92 MC/CUMM (3.8-5.5); Red Cell Distribution Width 13.6 % (9.3-17.3); White Blood Count 16.2 T/CUMM (4-12)
[2019-07-12 04:54] LABS: Calcium 7.2 MG/DL (8.5-10.1); Osmolality,Calculated 293.5 MOS/KG (273-304)
[2019-07-12] MEDS: ASPIRIN EC 325 MG TABLET PO SCH (08:15)
[2019-07-12] MEDS: CLOPIDOGREL 75 MG TABLET PO SCH (08:16)
[2019-07-12] MEDS: CHLORHEXIDINE 0.12% ORAL RINSE 60 ML BOTTLE SWISH/SPIT SCH ×2 (08:16→21:00)
[2019-07-12] MEDS: PANTOPRAZOLE 40 MG TABLET PO SCH (08:16)
[2019-07-12] MEDS: FUROSEMIDE 40 MG TABLET PO SCH (08:16)
[2019-07-12] MEDS: CARVEDILOL 6.25 MG TABLET PO SCH ×2 (08:16→20:59)
[2019-07-12] MEDS: glipiZIDE 5 MG TABLET PO SCH (10:20)
[2019-07-12] MEDS: MORPHINE 4 MG/1 ML VIAL IV PRN (16:54)
[2019-07-12] MEDS: ATORVASTATIN 40 MG TABLET PO SCH (20:59)
[2019-07-13] MEDS: INSULIN REGULAR 100 UNIT/ML SUBCUT SCH ×6 (00:29→22:30)
[2019-07-13 05:51] LABS: Basophils % 0.3 % (0.0-0.8); Eosinophils # 0.2 10*3/uL (0.0-0.87); Eosinophils % 1.2 % (0.00-10.9); Hematocrit 29.8 VOL% (42.0-52.0); Hemoglobin 9.3 GM/DL (14.0-18.0); Immature Granulocytes % 0.8 %; Immature Granulocytes Absolute 0.12 #; Lymphocytes # 1.7 10*3/uL (1.4-4.0); Lymphocytes % 11.5 % (21.2-54.2); Mean Corpuscular HGB Conc 31.2 GM/DL (32-36); Mean Corpuscular Volume 96.8 FL (87-102); Mean Platelet Volume 10.9 FL (9.6-12.0); Monocytes % 10.6 % (1.7-12.7); Neutrophils % 75.6 % (38.7-73.9); Platelet Count 209 T/CUMM (130-400); Red Blood Count 3.08 MC/CUMM (3.8-5.5); Red Cell Distribution Width 13.4 % (9.3-17.3); White Blood Count 14.4 T/CUMM (4-12)
[2019-07-13 06:20] LABS: Calcium 6.7 MG/DL (8.5-10.1); Osmolality,Calculated 296.5 MOS/KG (273-304)
[2019-07-13] MEDS: glipiZIDE 5 MG TABLET PO SCH (07:53)
[2019-07-13] MEDS ORDERED: AMIODARONE INJ 150 MG in DEXTROSE 5% 100 ML IV ONE ×3 (09:37→16:28)
[2019-07-13] MEDS ORDERED: AMIODARONE INJ 450 MG in DEXTROSE 5% 241 ML IV SCH (10:00)
[2019-07-13] MEDS ORDERED: HEPARIN 10,000 UNIT/10 ML VIAL IV PRN (10:52)
[2019-07-13] MEDS ORDERED: CALCIUM CHLORIDE 1,000 MG/10 ML SYRINGE IV ONE (12:44)
[2019-07-13] MEDS: FUROSEMIDE 40 MG TABLET PO SCH (12:54)
[2019-07-13] MEDS: PANTOPRAZOLE 40 MG TABLET PO SCH (12:54)
[2019-07-13] MEDS: CLOPIDOGREL 75 MG TABLET PO SCH (12:54)
[2019-07-13] MEDS: CARVEDILOL 6.25 MG TABLET PO SCH ×2 (12:54→21:55)
[2019-07-13] MEDS: ASPIRIN EC 325 MG TABLET PO SCH (12:54)
[2019-07-13] MEDS: CHLORHEXIDINE 0.12% ORAL RINSE 60 ML BOTTLE SWISH/SPIT SCH ×2 (12:55→21:56)
[2019-07-13] MEDS ORDERED: CALCIUM GLUCONATE 1,000 MG in SODIUM CHLORIDE 0.9% 100 ML IV ONE (13:30)
[2019-07-13] MEDS: AMIODARONE INJ 450 MG in DEXTROSE 5% 241 ML IV SCH (21:55)
[2019-07-13] MEDS: ATORVASTATIN 40 MG TABLET PO SCH (21:55)
[2019-07-14] MEDS: INSULIN REGULAR 100 UNIT/ML SUBCUT SCH ×6 (00:15→21:29)
[2019-07-14] MEDS: AMIODARONE INJ 450 MG in DEXTROSE 5% 241 ML IV SCH ×2 (08:53→14:55)
[2019-07-14] MEDS: FUROSEMIDE 40 MG TABLET PO SCH (08:55)
[2019-07-14] MEDS: glipiZIDE 5 MG TABLET PO SCH (08:55)
[2019-07-14] MEDS: CLOPIDOGREL 75 MG TABLET PO SCH (08:55)
[2019-07-14] MEDS: ASPIRIN EC 325 MG TABLET PO SCH (08:55)
[2019-07-14] MEDS: CHLORHEXIDINE 0.12% ORAL RINSE 60 ML BOTTLE SWISH/SPIT SCH ×2 (08:56→21:30)
[2019-07-14] MEDS: CARVEDILOL 6.25 MG TABLET PO SCH ×2 (08:56→21:30)
[2019-07-14] MEDS: PANTOPRAZOLE 40 MG TABLET PO SCH (08:56)
[2019-07-14] MEDS: ATORVASTATIN 40 MG TABLET PO SCH (21:30)
[2019-07-15] MEDS: INSULIN REGULAR 100 UNIT/ML SUBCUT SCH ×6 (00:24→21:27)
[2019-07-15 05:03] LABS: Basophils # 0.1 10*3/uL (0.0-0.2); Basophils % 0.5 % (0.0-0.8); Eosinophils # 0.5 10*3/uL (0.0-0.87); Eosinophils % 3.9 % (0.00-10.9); Hematocrit 27.3 VOL% (42.0-52.0); Hemoglobin 8.8 GM/DL (14.0-18.0); Immature Granulocytes % 0.9 %; Lymphocytes # 1.9 10*3/uL (1.4-4.0); Lymphocytes % 16.6 % (21.2-54.2); Mean Corpuscular HGB Conc 32.2 GM/DL (32-36); Mean Corpuscular Volume 95.8 FL (87-102); Mean Platelet Volume 11.1 FL (9.6-12.0); Monocytes % 11.3 % (1.7-12.7); Neutrophils % 66.8 % (38.7-73.9); Platelet Count 268 T/CUMM (130-400); Red Blood Count 2.85 MC/CUMM (3.8-5.5); Red Cell Distribution Width 13.1 % (9.3-17.3); White Blood Count 11.7 T/CUMM (4-12)
[2019-07-15 05:18] LABS: Calcium 6.8 MG/DL (8.5-10.1); Osmolality,Calculated 299.4 MOS/KG (273-304)
[2019-07-15 05:20] LABS: Albumin 2.6 G/DL (3.4-5.0); Calcium 6.4 MG/DL (8.5-10.1); Osmolality,Calculated 299.4 MOS/KG (273-304)
[2019-07-15] MEDS: AMIODARONE INJ 450 MG in DEXTROSE 5% 241 ML IV SCH (06:09)
[2019-07-15] MEDS: PANTOPRAZOLE 40 MG TABLET PO SCH (09:13)
[2019-07-15] MEDS: CHLORHEXIDINE 0.12% ORAL RINSE 60 ML BOTTLE SWISH/SPIT SCH ×2 (09:13→20:53)
[2019-07-15] MEDS: CLOPIDOGREL 75 MG TABLET PO SCH (09:13)
[2019-07-15] MEDS: ASPIRIN EC 325 MG TABLET PO SCH (09:13)
[2019-07-15] MEDS: glipiZIDE 5 MG TABLET PO SCH (09:13)
[2019-07-15] MEDS: CARVEDILOL 6.25 MG TABLET PO SCH ×2 (09:13→20:51)
[2019-07-15] MEDS: FUROSEMIDE 40 MG TABLET PO SCH (09:13)
[2019-07-15] MEDS: AMIODARONE 200 MG TABLET PO SCH ×4 (11:19→20:50)
[2019-07-15] MEDS ORDERED: TUBERCULIN SKIN TEST 0.1 ML SYRINGE INTRADERM ONE (16:57)
[2019-07-15] MEDS: ATORVASTATIN 40 MG TABLET PO SCH (20:51)
[2019-07-15] MEDS: ASCORBIC ACID 500 MG TABLET PO SCH (21:35)
[2019-07-16] MEDS: INSULIN REGULAR 100 UNIT/ML SUBCUT SCH ×6 (01:41→21:09)
[2019-07-16] MEDS: glipiZIDE 5 MG TABLET PO SCH (13:18)
[2019-07-16] MEDS: AMIODARONE 200 MG TABLET PO SCH ×3 (13:18→21:17)
[2019-07-16] MEDS: CARVEDILOL 6.25 MG TABLET PO SCH ×2 (13:18→21:17)
[2019-07-16] MEDS: FUROSEMIDE 40 MG TABLET PO SCH (13:19)
[2019-07-16] MEDS: PANTOPRAZOLE 40 MG TABLET PO SCH (13:19)
[2019-07-16] MEDS: ASCORBIC ACID 500 MG TABLET PO SCH ×2 (13:19→21:17)
[2019-07-16] MEDS: CLOPIDOGREL 75 MG TABLET PO SCH (13:19)
[2019-07-16] MEDS: ASPIRIN EC 325 MG TABLET PO SCH (13:19)
[2019-07-16] MEDS: CHLORHEXIDINE 0.12% ORAL RINSE 60 ML BOTTLE SWISH/SPIT SCH ×2 (13:20→21:17)
[2019-07-16] MEDS ORDERED: BISACODYL 5 MG TABLET PO PRN (14:04)
[2019-07-16] MEDS ORDERED: DOCUSATE SODIUM 100 MG CAPSULE PO PRN (14:05)
[2019-07-16] MEDS ORDERED: LINACLOTIDE 145 MCG CAPSULE PO ONE (16:57)
[2019-07-16] MEDS: ATORVASTATIN 40 MG TABLET PO SCH (21:17)
[2019-07-17] MEDS: INSULIN REGULAR 100 UNIT/ML SUBCUT SCH ×4 (00:04→13:52)
[2019-07-17] MEDS: ASCORBIC ACID 500 MG TABLET PO SCH (09:33)
[2019-07-17] MEDS: ASPIRIN EC 325 MG TABLET PO SCH (09:33)
[2019-07-17] MEDS: AMIODARONE 200 MG TABLET PO SCH (09:34)
[2019-07-17] MEDS: FUROSEMIDE 40 MG TABLET PO SCH (09:34)
[2019-07-17] MEDS: glipiZIDE 5 MG TABLET PO SCH (09:34)
[2019-07-17] MEDS: PANTOPRAZOLE 40 MG TABLET PO SCH (09:34)
[2019-07-17] MEDS: CARVEDILOL 6.25 MG TABLET PO SCH (09:34)
[2019-07-17] MEDS: CLOPIDOGREL 75 MG TABLET PO SCH (09:35)
[2019-07-17] MEDS: CHLORHEXIDINE 0.12% ORAL RINSE 60 ML BOTTLE SWISH/SPIT SCH (09:41)
[2019-07-17 12:30] VITALS: BP 124/64
[2019-07-17] MEDS ORDERED: LINACLOTIDE 145 MCG CAPSULE PO SCH (16:17)
[2019-07-22] MEDS ORDERED: AMIODARONE 200 MG TABLET PO SCH (09:00)
[2019-07-29] MEDS ORDERED: AMIODARONE 200 MG TABLET PO SCH (09:00)
== END 2019-07-17 15:43 | disposition swing bed (61) | DRG 233 ==
LOC: N.ED 07:44 → N.EDINP 09:34 → N.TELES 12:36 → N.CVR 07-10 08:40 → N.ICU 07-11 07:35 → N.TELES 07-12 12:20
PROVIDERS: ADMIT Family Medicine; ATTEND Family Medicine

== ENCOUNTER 2019-09-18 16:40 | Observation (INO) ==
[2019-09-18 18:46] LABS: Basophils # 0.1 10*3/uL (0.0-0.2); Eosinophils # 0.2 10*3/uL (0.0-0.87); Eosinophils % 2.2 % (0.00-10.9); Hematocrit 36.7 VOL% (42.0-52.0); Hemoglobin 11.6 GM/DL (14.0-18.0); Immature Granulocytes % 0.4 %; Immature Granulocytes Absolute 0.03 #; Lymphocytes % 25.9 % (21.2-54.2); Mean Corpuscular HGB Conc 31.6 GM/DL (32-36); Mean Corpuscular Volume 101.7 FL (87-102); Mean Platelet Volume 9.2 FL (9.6-12.0); Monocytes % 11.1 % (1.7-12.7); Neutrophils % 59.4 % (38.7-73.9); Platelet Count 271 T/CUMM (130-400); Red Blood Count 3.61 MC/CUMM (3.8-5.5); Red Cell Distribution Width 14.3 % (9.3-17.3); White Blood Count 7.8 T/CUMM (4-12)
[2019-09-18 18:54] LABS: INR 0.9; PT Patient Result 10.1 SECS (9.6-12.2)
[2019-09-18 19:10] LABS: Calcium 8.6 MG/DL (8.5-10.1); Osmolality,Calculated 280.3 MOS/KG (273-304)
[2019-09-18] MEDS ORDERED: GLUCAGON 1 MG VIAL IM PRN (21:07)
[2019-09-18] MEDS ORDERED: ONDANSETRON 4 MG/2 ML VIAL IV PRN (21:07)
[2019-09-18] MEDS ORDERED: DEXTROSE 50% 25 GM/50 ML VIAL IV PRN (21:07)
[2019-09-18] MEDS ORDERED: ACETAMINOPHEN 325 MG TABLET PO PRN (21:07)
[2019-09-18] MEDS: DOCUSATE SODIUM 100 MG CAPSULE PO SCH (22:10)
[2019-09-19] MEDS ORDERED: ceFAZolin 1,000 MG in SYRINGE 1 EACH IV ONE (07:37)
[2019-09-19] MEDS ORDERED: BUPIVACAINE 0.5% /EPI 10 ML VIAL ONE (08:37)
[2019-09-19] MEDS ORDERED: HEPARIN 5,000 UNIT/1 ML VIAL ONE (08:38)
[2019-09-19] MEDS ORDERED: LIDOCAINE 1%/EPI INJ 20 ML VIAL ONE (08:38)
[2019-09-19] MEDS ORDERED: TISSUE ADHESIVE 1 EACH APPLICATOR TOP ONE (08:38)
[2019-09-19] MEDS ORDERED: LACTATED RINGERS 1,000 ML IV SCH (09:00)
[2019-09-19] MEDS ORDERED: PANTOPRAZOLE 40 MG TABLET PO SCH (09:00)
[2019-09-19] MEDS ORDERED: SODIUM CHLORIDE 0.9% 250 ML IV SCH (09:00)
[2019-09-19] MEDS ORDERED: fentaNYL 100 MCG/2 ML VIAL ONE (09:45)
[2019-09-19] MEDS ORDERED: MIDAZOLAM 2 MG/2 ML VIAL ONE (09:46)
[2019-09-19] MEDS: DOCUSATE SODIUM 100 MG CAPSULE PO SCH (10:51)
[2019-09-19 14:17] VITALS: BP 140/75
== END 2019-09-19 14:00 | disposition home or self-care (01) ==
LOC: EDBD → EDUNIT# → N.EDINP 16:40 → N.ED 16:40 → N.3E 19:19
PROVIDERS: ADMIT Family Medicine; ATTEND Family Medicine

== ENCOUNTER 2019-11-06 09:54 | Inpatient (IN) ==
[2019-11-06] MEDS ORDERED: ONDANSETRON 4 MG/2 ML VIAL IV PRN (10:07)
[2019-11-06] MEDS ORDERED: ACETAMINOPHEN 325 MG TABLET PO PRN (10:07)
[2019-11-06] MEDS ORDERED: DEXTROSE 50% 25 GM/50 ML VIAL IV PRN (10:07)
[2019-11-06] MEDS ORDERED: VANCOMYCIN INJ 750 MG in SODIUM CHLORIDE 0.9% 250 ML IV PRN (12:58)
[2019-11-06] MEDS ORDERED: SODIUM CHLORIDE 0.9% 1,000 ML IV SCH (13:00)
[2019-11-06 14:15] LABS: Basophils % 0.2 % (0.0-0.8); Eosinophils % 0.1 % (0.00-10.9); Hematocrit 33.1 VOL% (42.0-52.0); Hemoglobin 10.8 GM/DL (14.0-18.0); Immature Granulocytes % 1.2 %; Immature Granulocytes Absolute 0.21 #; Lymphocytes % 5.8 % (21.2-54.2); Mean Corpuscular HGB Conc 32.6 GM/DL (32-36); Mean Corpuscular Volume 97.6 FL (87-102); Mean Platelet Volume 9.7 FL (9.6-12.0); Monocytes % 6.8 % (1.7-12.7); Neutrophils % 85.9 % (38.7-73.9); Platelet Count 293 T/CUMM (130-400); Red Blood Count 3.39 MC/CUMM (3.8-5.5); White Blood Count 17.5 T/CUMM (4-12)
[2019-11-06] MEDS: INSULIN LISPRO 100 UNIT/ML SUBCUT SCH ×3 (14:37→21:45)
[2019-11-06 14:40] LABS: Albumin 2.7 G/DL (3.4-5.0); Bilirubin,Total 0.4 MG/DL (0.2-1.0); Calcium 8.7 MG/DL (8.5-10.1); Osmolality,Calculated 286.4 MOS/KG (273-304); Total Protein 7.8 G/DL (6.4-8.3)
[2019-11-06] MEDS ORDERED: LORazepam 2 MG/1 ML VIAL IM ONE (15:28)
[2019-11-06] MEDS ORDERED: VANCOMYCIN INJ 2,250 MG in SODIUM CHLORIDE 0.9% 500 ML IV ONE (16:00)
[2019-11-06] MEDS ORDERED: traMADol 50 MG TABLET PO PRN (16:51)
[2019-11-06] MEDS: cefTAZidime 1,000 MG in SYRINGE 1 EACH IV SCH (21:52)
[2019-11-07 07:38] LABS: Basophils # 0.1 10*3/uL (0.0-0.2); Basophils % 0.3 % (0.0-0.8); Eosinophils # 0.1 10*3/uL (0.0-0.87); Eosinophils % 0.4 % (0.00-10.9); Hematocrit 32.5 VOL% (42.0-52.0); Hemoglobin 10.7 GM/DL (14.0-18.0); Immature Granulocytes % 0.9 %; Immature Granulocytes Absolute 0.15 #; Lymphocytes # 1.8 10*3/uL (1.4-4.0); Mean Corpuscular HGB Conc 32.9 GM/DL (32-36); Mean Corpuscular Volume 97.6 FL (87-102); Mean Platelet Volume 9.8 FL (9.6-12.0); Monocytes % 11.9 % (1.7-12.7); Neutrophils % 75.5 % (38.7-73.9); Platelet Count 242 T/CUMM (130-400); Red Blood Count 3.33 MC/CUMM (3.8-5.5); Red Cell Distribution Width 14.8 % (9.3-17.3); White Blood Count 15.8 T/CUMM (4-12)
[2019-11-07 07:53] LABS: Calcium 8.5 MG/DL (8.5-10.1)
[2019-11-07] MEDS ORDERED: CLOPIDOGREL 75 MG TABLET PO SCH (09:00)
[2019-11-07] MEDS: AMIODARONE 200 MG TABLET PO SCH (09:40)
[2019-11-07] MEDS: ATORVASTATIN 40 MG TABLET PO SCH (09:40)
[2019-11-07] MEDS: INSULIN LISPRO 100 UNIT/ML SUBCUT SCH ×4 (09:40→21:21)
[2019-11-07] MEDS: ASPIRIN EC 81 MG TABLET PO SCH (09:40)
[2019-11-07] MEDS: PANTOPRAZOLE 40 MG TABLET PO SCH (09:41)
[2019-11-07] MEDS: FUROSEMIDE 40 MG TABLET PO SCH (09:41)
[2019-11-07] MEDS: SEVELAMER CARBONATE 800 MG TABLET PO SCH ×3 (09:41→16:28)
[2019-11-07] MEDS: cefTAZidime 1,000 MG in SYRINGE 1 EACH IV SCH (16:28)
[2019-11-08 05:34] LABS: Basophils # 0.1 10*3/uL (0.0-0.2); Basophils % 0.4 % (0.0-0.8); Eosinophils # 0.1 10*3/uL (0.0-0.87); Hematocrit 29.9 VOL% (42.0-52.0); Hemoglobin 9.7 GM/DL (14.0-18.0); Immature Granulocytes % 0.7 %; Immature Granulocytes Absolute 0.09 #; Lymphocytes # 2.1 10*3/uL (1.4-4.0); Lymphocytes % 16.7 % (21.2-54.2); Mean Corpuscular HGB Conc 32.4 GM/DL (32-36); Mean Corpuscular Volume 98.4 FL (87-102); Mean Platelet Volume 10.1 FL (9.6-12.0); Monocytes % 12.2 % (1.7-12.7); Platelet Count 246 T/CUMM (130-400); Red Blood Count 3.04 MC/CUMM (3.8-5.5); Red Cell Distribution Width 14.8 % (9.3-17.3); White Blood Count 12.5 T/CUMM (4-12)
[2019-11-08] MEDS: INSULIN LISPRO 100 UNIT/ML SUBCUT SCH ×4 (08:15→21:49)
[2019-11-08] MEDS: SEVELAMER CARBONATE 800 MG TABLET PO SCH ×3 (10:05→17:19)
[2019-11-08] MEDS ORDERED: LIDOCAINE 1% 20 ML VIAL ONE (11:29)
[2019-11-08] MEDS ORDERED: SODIUM CHLORIDE 0.9% 250 ML IV SCH (13:00)
[2019-11-08] MEDS ORDERED: ONDANSETRON 4 MG/2 ML VIAL IV PRN (13:01)
[2019-11-08] MEDS ORDERED: HYDROmorphone 2 MG/1 ML VIAL IV PRN (13:01)
[2019-11-08] MEDS ORDERED: propofoL 200 MG/20 ML VIAL IV ONE (13:02)
[2019-11-08] MEDS ORDERED: LIDOCAINE 2% 5 ML VIAL ONE (13:03)
[2019-11-08] MEDS ORDERED: fentaNYL 100 MCG/2 ML VIAL ONE (13:03)
[2019-11-08] MEDS: PANTOPRAZOLE 40 MG TABLET PO SCH (14:21)
[2019-11-08] MEDS: ATORVASTATIN 40 MG TABLET PO SCH (14:21)
[2019-11-08] MEDS: ASPIRIN EC 81 MG TABLET PO SCH (14:21)
[2019-11-08] MEDS: FUROSEMIDE 40 MG TABLET PO SCH (14:21)
[2019-11-08] MEDS: AMIODARONE 200 MG TABLET PO SCH (14:21)
[2019-11-08] MEDS: DOCUSATE SODIUM 100 MG CAPSULE PO PRN (14:21)
[2019-11-08] MEDS: cefTAZidime 1,000 MG in SYRINGE 1 EACH IV SCH (17:20)
[2019-11-08] MEDS ORDERED: VANCOMYCIN INJ 750 MG in SODIUM CHLORIDE 0.9% 250 ML IV ONE (17:30)
[2019-11-09] MEDS: INSULIN LISPRO 100 UNIT/ML SUBCUT SCH ×4 (07:46→22:21)
[2019-11-09] MEDS: AMIODARONE 200 MG TABLET PO SCH (08:58)
[2019-11-09] MEDS: PANTOPRAZOLE 40 MG TABLET PO SCH (08:58)
[2019-11-09] MEDS: SEVELAMER CARBONATE 800 MG TABLET PO SCH ×3 (08:58→17:02)
[2019-11-09] MEDS: ATORVASTATIN 40 MG TABLET PO SCH (08:58)
[2019-11-09] MEDS: FUROSEMIDE 40 MG TABLET PO SCH (08:58)
[2019-11-09] MEDS: ASPIRIN EC 81 MG TABLET PO SCH (08:59)
[2019-11-09] MEDS: DOCUSATE SODIUM 100 MG CAPSULE PO PRN (08:59)
[2019-11-09] MEDS: cefTAZidime 1,000 MG in SYRINGE 1 EACH IV SCH (17:02)
[2019-11-10] MEDS: INSULIN LISPRO 100 UNIT/ML SUBCUT SCH ×3 (07:23→15:53)
[2019-11-10] MEDS: AMIODARONE 200 MG TABLET PO SCH (09:27)
[2019-11-10] MEDS: SEVELAMER CARBONATE 800 MG TABLET PO SCH ×3 (09:27→17:07)
[2019-11-10] MEDS: ATORVASTATIN 40 MG TABLET PO SCH (09:27)
[2019-11-10] MEDS: FUROSEMIDE 40 MG TABLET PO SCH (09:27)
[2019-11-10] MEDS: ASPIRIN EC 81 MG TABLET PO SCH (09:27)
[2019-11-10] MEDS: PANTOPRAZOLE 40 MG TABLET PO SCH (09:28)
[2019-11-10] MEDS ORDERED: LINACLOTIDE 145 MCG CAPSULE PO PRN (11:30)
[2019-11-10] MEDS: cefTAZidime 1,000 MG in SYRINGE 1 EACH IV SCH (17:07)
[2019-11-11] MEDS: INSULIN LISPRO 100 UNIT/ML SUBCUT SCH ×5 (00:07→20:55)
[2019-11-11] MEDS: ATORVASTATIN 40 MG TABLET PO SCH (08:47)
[2019-11-11] MEDS: FUROSEMIDE 40 MG TABLET PO SCH (08:47)
[2019-11-11] MEDS: AMIODARONE 200 MG TABLET PO SCH (08:47)
[2019-11-11] MEDS: ASPIRIN EC 81 MG TABLET PO SCH (08:47)
[2019-11-11] MEDS: PANTOPRAZOLE 40 MG TABLET PO SCH (08:48)
[2019-11-11] MEDS: SEVELAMER CARBONATE 800 MG TABLET PO SCH ×3 (08:48→16:26)
[2019-11-11] MEDS ORDERED: HEPARIN 10,000 UNIT/10 ML VIAL IV PRN (10:55)
[2019-11-11] MEDS: cefTAZidime 1,000 MG in SYRINGE 1 EACH IV SCH (16:27)
[2019-11-11] MEDS ORDERED: VANCOMYCIN INJ 750 MG in SODIUM CHLORIDE 0.9% 250 ML IV ONE (17:30)
[2019-11-12 05:56] LABS: Basophils # 0.1 10*3/uL (0.0-0.2); Basophils % 0.4 % (0.0-0.8); Eosinophils # 0.2 10*3/uL (0.0-0.87); Eosinophils % 1.9 % (0.00-10.9); Hematocrit 31.1 VOL% (42.0-52.0); Hemoglobin 9.8 GM/DL (14.0-18.0); Immature Granulocytes % 1.2 %; Immature Granulocytes Absolute 0.14 #; Lymphocytes # 2.6 10*3/uL (1.4-4.0); Lymphocytes % 22.7 % (21.2-54.2); Mean Corpuscular HGB Conc 31.5 GM/DL (32-36); Mean Platelet Volume 9.9 FL (9.6-12.0); Monocytes % 10.7 % (1.7-12.7); Neutrophils % 63.1 % (38.7-73.9); Platelet Count 247 T/CUMM (130-400); Red Blood Count 3.14 MC/CUMM (3.8-5.5); White Blood Count 11.6 T/CUMM (4-12)
[2019-11-12 06:18] LABS: Calcium 8.3 MG/DL (8.5-10.1); Osmolality,Calculated 289.5 MOS/KG (273-304)
[2019-11-12] MEDS: INSULIN LISPRO 100 UNIT/ML SUBCUT SCH ×4 (08:07→20:52)
[2019-11-12] MEDS: SEVELAMER CARBONATE 800 MG TABLET PO SCH ×3 (08:09→16:33)
[2019-11-12] MEDS: AMIODARONE 200 MG TABLET PO SCH (08:30)
[2019-11-12] MEDS ORDERED: BUPIVACAINE MPF 0.25% 30 ML VIAL ONE (10:22)
[2019-11-12] MEDS ORDERED: LIDOCAINE 1% 20 ML VIAL ONE (10:22)
[2019-11-12] MEDS: PANTOPRAZOLE 40 MG TABLET PO SCH (10:47)
[2019-11-12] MEDS: ATORVASTATIN 40 MG TABLET PO SCH (10:47)
[2019-11-12] MEDS: ASPIRIN EC 81 MG TABLET PO SCH (10:47)
[2019-11-12] MEDS: FUROSEMIDE 40 MG TABLET PO SCH (10:47)
[2019-11-12] MEDS: cefTAZidime 1,000 MG in SYRINGE 1 EACH IV SCH (16:33)
[2019-11-13] MEDS: INSULIN LISPRO 100 UNIT/ML SUBCUT SCH ×4 (07:32→22:30)
[2019-11-13] MEDS: PANTOPRAZOLE 40 MG TABLET PO SCH (09:59)
[2019-11-13] MEDS: ATORVASTATIN 40 MG TABLET PO SCH (09:59)
[2019-11-13] MEDS: metroNIDAZOLE 500 MG TABLET PO SCH ×3 (09:59→21:52)
[2019-11-13] MEDS: FUROSEMIDE 40 MG TABLET PO SCH (09:59)
[2019-11-13] MEDS: SEVELAMER CARBONATE 800 MG TABLET PO SCH ×3 (09:59→18:33)
[2019-11-13] MEDS: ASPIRIN EC 81 MG TABLET PO SCH (09:59)
[2019-11-13] MEDS: AMIODARONE 200 MG TABLET PO SCH (09:59)
[2019-11-13] MEDS: cefTAZidime 1,000 MG in SYRINGE 1 EACH IV SCH (18:34)
[2019-11-14 07:28] VITALS: BP 101/48
[2019-11-14] MEDS: INSULIN LISPRO 100 UNIT/ML SUBCUT SCH (08:00)
[2019-11-14] MEDS: ASPIRIN EC 81 MG TABLET PO SCH (08:27)
[2019-11-14] MEDS: AMIODARONE 200 MG TABLET PO SCH (08:27)
[2019-11-14] MEDS: PANTOPRAZOLE 40 MG TABLET PO SCH (08:27)
[2019-11-14] MEDS: SEVELAMER CARBONATE 800 MG TABLET PO SCH (08:27)
[2019-11-14] MEDS: metroNIDAZOLE 500 MG TABLET PO SCH (08:27)
[2019-11-14] MEDS: FUROSEMIDE 40 MG TABLET PO SCH (08:28)
[2019-11-14] MEDS: ATORVASTATIN 40 MG TABLET PO SCH (08:28)
== END 2019-11-14 10:13 | disposition home health service (06) | DRG 239 ==
LOC: N.2E
PROVIDERS: ADMIT Family Medicine; ATTEND Family Medicine

== ENCOUNTER 2019-12-20 12:21 | Inpatient (IN) ==
[2019-12-20 13:33] LABS: Basophils # 0.1 10*3/uL (0.0-0.2); Basophils % 0.5 % (0.0-0.8); Eosinophils % 0.2 % (0.00-10.9); Hematocrit 25.9 VOL% (42.0-52.0); Hemoglobin 8.3 GM/DL (14.0-18.0); Immature Granulocytes % 0.8 %; Lymphocytes # 1.8 10*3/uL (1.4-4.0); Lymphocytes % 14.1 % (21.2-54.2); Mean Corpuscular Volume 97.4 FL (87-102); Mean Platelet Volume 9.5 FL (9.6-12.0); Monocytes % 12.1 % (1.7-12.7); Neutrophils % 72.3 % (38.7-73.9); Platelet Count 291 T/CUMM (130-400); Red Blood Count 2.66 MC/CUMM (3.8-5.5); Red Cell Distribution Width 16.3 % (9.3-17.3); White Blood Count 12.9 T/CUMM (4-12)
[2019-12-20 13:53] LABS: PT Patient Result 11.1 SECS (9.6-12.2); Partial Thromboplastin Time 25.3 SECS (20.8-36.0)
[2019-12-20 13:55] LABS: Alanine Aminotransferase < 9 U/L (16-61); Albumin 1.9 G/DL (3.4-5.0); Alkaline Phosphatase 52 U/L (45-117); Aspartate Amino Transferase 11 U/L (0-37); Blood Urea Nitrogen 22 MG/DL (7-18); Calcium 7.4 MG/DL (8.5-10.1); Estimated Glom Filtration Rate 13 ML/MIN; Glucose 80 MG/DL (74-106); Osmolality,Calculated 276.7 MOS/KG (273-304); Total Protein 5.5 G/DL (6.4-8.3)
[2019-12-20] MEDS ORDERED: DEXTROSE 50% 25 GM/50 ML VIAL IV PRN ×2 (15:55→22:06)
[2019-12-20] MEDS ORDERED: GLUCAGON 1 MG VIAL IM PRN ×2 (15:55→22:06)
[2019-12-20] MEDS ORDERED: ONDANSETRON 4 MG/2 ML VIAL IV PRN (17:32)
[2019-12-20] MEDS ORDERED: metroNIDAZOLE INJ 500 MG in PREMIX 1 EACH IV SCH (18:00)
[2019-12-20] MEDS ORDERED: ENOXAPARIN 30 MG/0.3 ML SYRINGE SUBCUT SCH (21:00)
[2019-12-20] MEDS ORDERED: NITROGLYCERIN SL 0.4 MG TABLET SL PRN (22:30)
[2019-12-20] MEDS ORDERED: ACETAMINOPHEN 325 MG TABLET PO PRN (22:30)
[2019-12-20] MEDS: HEPARIN DRIP 25,000 UNITS/500 ML PREMIX IV SCH (22:53)
[2019-12-20] MEDS ORDERED: WARFARIN 5 MG TABLET PO ONE (23:10)
[2019-12-20] MEDS ORDERED: ALBUMIN 25% 25 GM in PREMIX 1 EACH IV SCH (23:30)
[2019-12-21] MEDS ORDERED: METRONIDAZOLE IV SCH
[2019-12-21] MEDS: VANCOMYCIN 50 MG/ML 60 ML/BOTTLE PO SCH ×4 (00:14→17:51)
[2019-12-21] MEDS: carvediloL 3.125 MG TABLET PO SCH ×3 (00:14→16:24)
[2019-12-21] MEDS ORDERED: WARFARIN 2.5 MG TABLET PO ONE (00:30)
[2019-12-21] MEDS ORDERED: WARFARIN 5 MG TABLET PO ONE (00:30)
[2019-12-21 04:47] LABS: Basophils % 0.4 % (0.0-0.8); Eosinophils % 0.2 % (0.00-10.9); Hematocrit 25.6 VOL% (42.0-52.0); Hemoglobin 8.1 GM/DL (14.0-18.0); Immature Granulocytes % 0.6 %; Immature Granulocytes Absolute 0.06 #; Lymphocytes # 1.9 10*3/uL (1.4-4.0); Lymphocytes % 17.6 % (21.2-54.2); Mean Corpuscular HGB Conc 31.6 GM/DL (32-36); Mean Platelet Volume 10.1 FL (9.6-12.0); Monocytes % 10.4 % (1.7-12.7); Neutrophils % 70.8 % (38.7-73.9); Platelet Count 297 T/CUMM (130-400); Red Blood Count 2.64 MC/CUMM (3.8-5.5); Red Cell Distribution Width 16.2 % (9.3-17.3); White Blood Count 10.6 T/CUMM (4-12)
[2019-12-21 05:21] LABS: Albumin 1.8 G/DL (3.4-5.0); Calcium 7.8 MG/DL (8.5-10.1); Osmolality,Calculated 283.7 MOS/KG (273-304); Total Protein 5.8 G/DL (6.4-8.3)
[2019-12-21] MEDS: INSULIN REGULAR 100 UNIT/ML SUBCUT SCH ×4 (08:00→22:36)
[2019-12-21] MEDS: allopurinoL 100 MG TABLET PO SCH (08:26)
[2019-12-21] MEDS: AMIODARONE 200 MG TABLET PO SCH (08:27)
[2019-12-21] MEDS: PANTOPRAZOLE 40 MG TABLET PO SCH (08:27)
[2019-12-21] MEDS: FERROUS SULFATE 325 MG TABLET PO SCH ×2 (08:27→20:55)
[2019-12-21] MEDS: SEVELAMER CARBONATE 800 MG TABLET PO SCH ×3 (08:28→20:55)
[2019-12-21] MEDS: MULTIVITAMIN (CENTRUM) TABLET PO SCH (08:28)
[2019-12-21] MEDS ORDERED: carvediloL 3.125 MG TABLET PO SCH (09:00)
[2019-12-21 10:30] LABS: Troponin I 0.807 NG/ML (0.00-0.045)
[2019-12-21] MEDS: ASPIRIN EC 81 MG TABLET PO SCH (10:41)
[2019-12-21] MEDS: HEPARIN DRIP 25,000 UNITS/500 ML PREMIX IV SCH (13:14)
[2019-12-21 17:33] LABS: Troponin I 0.883 NG/ML (0.00-0.045)
[2019-12-21] MEDS: WARFARIN 2.5 MG TABLET PO SCH (17:51)
[2019-12-21] MEDS ORDERED: WARFARIN 5 MG TABLET PO SCH (18:00)
[2019-12-21] MEDS: ACETAMINOPHEN 325 MG TABLET PO PRN (20:55)
[2019-12-21] MEDS: ATORVASTATIN 10 MG TABLET PO SCH (20:55)
[2019-12-22 02:15] LABS: Basophils # 0.1 10*3/uL (0.0-0.2); Basophils % 0.5 % (0.0-0.8); Eosinophils # 0.1 10*3/uL (0.0-0.87); Eosinophils % 0.5 % (0.00-10.9); Hematocrit 25.7 VOL% (42.0-52.0); Hemoglobin 8.3 GM/DL (14.0-18.0); Immature Granulocytes % 0.6 %; Immature Granulocytes Absolute 0.08 #; Lymphocytes # 2.5 10*3/uL (1.4-4.0); Lymphocytes % 18.6 % (21.2-54.2); Mean Corpuscular HGB Conc 32.3 GM/DL (32-36); Mean Platelet Volume 9.6 FL (9.6-12.0); Monocytes % 11.9 % (1.7-12.7); Neutrophils % 67.9 % (38.7-73.9); Platelet Count 331 T/CUMM (130-400); Red Blood Count 2.65 MC/CUMM (3.8-5.5); Red Cell Distribution Width 16.1 % (9.3-17.3); White Blood Count 13.3 T/CUMM (4-12)
[2019-12-22 02:28] LABS: Blood Urea Nitrogen 40 MG/DL (7-18); Calcium 8.1 MG/DL (8.5-10.1); Estimated Glom Filtration Rate 8 ML/MIN; Glucose 108 MG/DL (74-106); Osmolality,Calculated 283.8 MOS/KG (273-304)
[2019-12-22 02:29] LABS: Troponin I 0.784 NG/ML (0.00-0.045)
[2019-12-22] MEDS: VANCOMYCIN 50 MG/ML 60 ML/BOTTLE PO SCH ×5 (05:47→17:38)
[2019-12-22] MEDS: HEPARIN DRIP 25,000 UNITS/500 ML PREMIX IV SCH (07:19)
[2019-12-22] MEDS: INSULIN REGULAR 100 UNIT/ML SUBCUT SCH ×4 (07:20→20:47)
[2019-12-22] MEDS: FERROUS SULFATE 325 MG TABLET PO SCH ×2 (09:45→20:45)
[2019-12-22] MEDS: ZINC OXIDE PASTE 113 GM TUBE TOP SCH ×2 (09:45→20:46)
[2019-12-22] MEDS: ASPIRIN EC 81 MG TABLET PO SCH (09:45)
[2019-12-22] MEDS: allopurinoL 100 MG TABLET PO SCH (09:45)
[2019-12-22] MEDS: SEVELAMER CARBONATE 800 MG TABLET PO SCH ×3 (09:45→20:45)
[2019-12-22] MEDS: MULTIVITAMIN (CENTRUM) TABLET PO SCH (09:45)
[2019-12-22] MEDS: carvediloL 3.125 MG TABLET PO SCH ×2 (09:45→17:34)
[2019-12-22] MEDS: PANTOPRAZOLE 40 MG TABLET PO SCH (09:45)
[2019-12-22] MEDS: AMIODARONE 200 MG TABLET PO SCH (09:45)
[2019-12-22] MEDS: WARFARIN 2.5 MG TABLET PO SCH (17:34)
[2019-12-22] MEDS: ATORVASTATIN 10 MG TABLET PO SCH (20:45)
[2019-12-23] MEDS: VANCOMYCIN 50 MG/ML 60 ML/BOTTLE PO SCH ×4 (00:04→17:01)
[2019-12-23 05:18] LABS: Basophils # 0.1 10*3/uL (0.0-0.2); Basophils % 0.4 % (0.0-0.8); Eosinophils # 0.1 10*3/uL (0.0-0.87); Eosinophils % 0.4 % (0.00-10.9); Hemoglobin 7.6 GM/DL (14.0-18.0); Immature Granulocytes % 0.7 %; Immature Granulocytes Absolute 0.09 #; Lymphocytes # 2.1 10*3/uL (1.4-4.0); Lymphocytes % 15.3 % (21.2-54.2); Mean Corpuscular HGB Conc 31.7 GM/DL (32-36); Mean Corpuscular Volume 97.2 FL (87-102); Mean Platelet Volume 9.9 FL (9.6-12.0); Monocytes % 9.6 % (1.7-12.7); Neutrophils % 73.6 % (38.7-73.9); Platelet Count 348 T/CUMM (130-400); Red Blood Count 2.47 MC/CUMM (3.8-5.5); White Blood Count 13.6 T/CUMM (4-12)
[2019-12-23 05:24] LABS: PT Patient Result 11.2 SECS (9.6-12.2)
[2019-12-23 05:43] LABS: Calcium 7.8 MG/DL (8.5-10.1)
[2019-12-23] MEDS: SEVELAMER CARBONATE 800 MG TABLET PO SCH ×3 (08:44→20:52)
[2019-12-23] MEDS: FERROUS SULFATE 325 MG TABLET PO SCH ×2 (08:44→20:51)
[2019-12-23] MEDS: INSULIN REGULAR 100 UNIT/ML SUBCUT SCH ×4 (08:44→20:52)
[2019-12-23] MEDS: allopurinoL 100 MG TABLET PO SCH (08:44)
[2019-12-23] MEDS: AMIODARONE 200 MG TABLET PO SCH (08:44)
[2019-12-23] MEDS: PANTOPRAZOLE 40 MG TABLET PO SCH (08:44)
[2019-12-23] MEDS: carvediloL 3.125 MG TABLET PO SCH ×2 (08:45→17:01)
[2019-12-23] MEDS: ZINC OXIDE PASTE 113 GM TUBE TOP SCH ×2 (08:45→20:51)
[2019-12-23] MEDS: ASPIRIN EC 81 MG TABLET PO SCH (09:00)
[2019-12-23] MEDS: traMADol 50 MG TABLET PO PRN ×2 (09:12→17:01)
[2019-12-23] MEDS: MULTIVITAMIN (CENTRUM) TABLET PO SCH (09:12)
[2019-12-23] MEDS ORDERED: EPOETIN ALFA 10,000 UNIT/1 ML VIAL IV PRN (15:10)
[2019-12-23] MEDS ORDERED: HEPARIN 10,000 UNIT/10 ML VIAL IV SCH (15:30)
[2019-12-23] MEDS: WARFARIN 2.5 MG TABLET PO SCH (17:01)
[2019-12-23] MEDS: ATORVASTATIN 10 MG TABLET PO SCH (20:51)
[2019-12-24] MEDS: VANCOMYCIN 50 MG/ML 60 ML/BOTTLE PO SCH ×4 (01:05→17:17)
[2019-12-24 06:23] LABS: Basophils # 0.1 10*3/uL (0.0-0.2); Basophils % 0.5 % (0.0-0.8); Eosinophils # 0.1 10*3/uL (0.0-0.87); Eosinophils % 0.8 % (0.00-10.9); Hematocrit 24.5 VOL% (42.0-52.0); Hemoglobin 7.8 GM/DL (14.0-18.0); Immature Granulocytes % 0.5 %; Immature Granulocytes Absolute 0.05 #; Lymphocytes # 1.9 10*3/uL (1.4-4.0); Mean Corpuscular HGB Conc 31.8 GM/DL (32-36); Mean Platelet Volume 9.7 FL (9.6-12.0); Neutrophils % 70.2 % (38.7-73.9); Platelet Count 329 T/CUMM (130-400); Red Cell Distribution Width 15.9 % (9.3-17.3); White Blood Count 11.1 T/CUMM (4-12)
[2019-12-24 06:26] LABS: INR 1.1; PT Patient Result 11.4 SECS (9.6-12.2)
[2019-12-24 06:35] LABS: Calcium 8.1 MG/DL (8.5-10.1); Osmolality,Calculated 282.8 MOS/KG (273-304)
[2019-12-24] MEDS: INSULIN REGULAR 100 UNIT/ML SUBCUT SCH ×4 (07:39→21:19)
[2019-12-24] MEDS ORDERED: LIDOCAINE 1% 20 ML VIAL ONE (08:54)
[2019-12-24] MEDS ORDERED: BUPIVACAINE MPF 0.25% 30 ML VIAL ONE (08:54)
[2019-12-24] MEDS ORDERED: propofoL 200 MG/20 ML VIAL IV ONE (09:25)
[2019-12-24] MEDS ORDERED: fentaNYL 100 MCG/2 ML VIAL ONE (09:26)
[2019-12-24] MEDS ORDERED: ETOMIDATE 40 MG/20 ML VIAL IV ONE (09:26)
[2019-12-24] MEDS ORDERED: ONDANSETRON 4 MG/2 ML VIAL IV PRN (09:36)
[2019-12-24] MEDS ORDERED: HYDROmorphone 2 MG/1 ML VIAL IV PRN (09:36)
[2019-12-24] MEDS: ASPIRIN EC 81 MG TABLET PO SCH (11:31)
[2019-12-24] MEDS: AMIODARONE 200 MG TABLET PO SCH (11:32)
[2019-12-24] MEDS: SEVELAMER CARBONATE 800 MG TABLET PO SCH ×3 (11:32→21:00)
[2019-12-24] MEDS: PANTOPRAZOLE 40 MG TABLET PO SCH (11:32)
[2019-12-24] MEDS: MULTIVITAMIN (CENTRUM) TABLET PO SCH (11:32)
[2019-12-24] MEDS: FERROUS SULFATE 325 MG TABLET PO SCH ×2 (11:32→21:00)
[2019-12-24] MEDS: carvediloL 3.125 MG TABLET PO SCH ×2 (11:32→17:16)
[2019-12-24] MEDS: allopurinoL 100 MG TABLET PO SCH (11:32)
[2019-12-24] MEDS: ZINC OXIDE PASTE 113 GM TUBE TOP SCH ×2 (11:33→21:00)
[2019-12-24] MEDS ORDERED: ENOXAPARIN 100 MG/ML SYRINGE SUBCUT SCH (12:00)
[2019-12-24] MEDS: WARFARIN 2.5 MG TABLET PO SCH (17:16)
[2019-12-24] MEDS: ATORVASTATIN 10 MG TABLET PO SCH (21:00)
[2019-12-25 00:11] LABS: CDT Result Negative (Negative); CDT Specimen Source STOOL
[2019-12-25] MEDS: VANCOMYCIN 50 MG/ML 60 ML/BOTTLE PO SCH (02:20)
[2019-12-25 06:20] LABS: Basophils # 0.1 10*3/uL (0.0-0.2); Basophils % 0.7 % (0.0-0.8); Eosinophils # 0.1 10*3/uL (0.0-0.87); Eosinophils % 0.7 % (0.00-10.9); Hematocrit 24.1 VOL% (42.0-52.0); Hemoglobin 7.8 GM/DL (14.0-18.0); Immature Granulocytes % 0.5 %; Immature Granulocytes Absolute 0.05 #; Lymphocytes # 2.3 10*3/uL (1.4-4.0); Lymphocytes % 23.8 % (21.2-54.2); Mean Corpuscular HGB Conc 32.4 GM/DL (32-36); Mean Corpuscular Volume 97.6 FL (87-102); Mean Platelet Volume 10.2 FL (9.6-12.0); Monocytes % 12.5 % (1.7-12.7); Neutrophils % 61.8 % (38.7-73.9); Platelet Count 328 T/CUMM (130-400); Red Blood Count 2.47 MC/CUMM (3.8-5.5); White Blood Count 9.8 T/CUMM (4-12)
[2019-12-25 06:24] LABS: INR 1.1; PT Patient Result 11.9 SECS (9.6-12.2)
[2019-12-25 06:39] LABS: Calcium 7.7 MG/DL (8.5-10.1); Osmolality,Calculated 288.7 MOS/KG (273-304)
[2019-12-25] MEDS: INSULIN REGULAR 100 UNIT/ML SUBCUT SCH ×4 (08:04→21:01)
[2019-12-25] MEDS ORDERED: VANCOMYCIN INJ 750 MG in SODIUM CHLORIDE 0.9% 250 ML IV PRN (08:20)
[2019-12-25] MEDS: MULTIVITAMIN (CENTRUM) TABLET PO SCH (09:10)
[2019-12-25] MEDS: AMIODARONE 200 MG TABLET PO SCH (09:10)
[2019-12-25] MEDS: SEVELAMER CARBONATE 800 MG TABLET PO SCH ×3 (09:10→20:41)
[2019-12-25] MEDS: ASPIRIN EC 81 MG TABLET PO SCH (09:10)
[2019-12-25] MEDS: carvediloL 3.125 MG TABLET PO SCH ×2 (09:11→16:30)
[2019-12-25] MEDS: FERROUS SULFATE 325 MG TABLET PO SCH ×2 (09:11→20:41)
[2019-12-25] MEDS: ZINC OXIDE PASTE 113 GM TUBE TOP SCH ×2 (09:11→21:01)
[2019-12-25] MEDS: allopurinoL 100 MG TABLET PO SCH (09:11)
[2019-12-25] MEDS: PANTOPRAZOLE 40 MG TABLET PO SCH (09:11)
[2019-12-25] MEDS: traMADol 50 MG TABLET PO PRN (09:23)
[2019-12-25] MEDS ORDERED: VANCOMYCIN INJ 2,000 MG in SODIUM CHLORIDE 0.9% 500 ML IV ONE (17:00)
[2019-12-25] MEDS: SODIUM HYPOCHLORITE 0.25% IRRIG 473 ML BOTTLE TOP SCH (18:20)
[2019-12-25] MEDS: WARFARIN 2.5 MG TABLET PO SCH (18:35)
[2019-12-25] MEDS: ATORVASTATIN 10 MG TABLET PO SCH (20:41)
[2019-12-26] MEDS: INSULIN REGULAR 100 UNIT/ML SUBCUT SCH ×4 (07:24→22:10)
[2019-12-26 08:56] LABS: Hematocrit 25.2 VOL% (42.0-52.0); Hemoglobin 7.9 GM/DL (14.0-18.0)
[2019-12-26] MEDS ORDERED: SODIUM HYPOCHLORITE 0.25% IRRIG 473 ML BOTTLE TOP SCH (09:00)
[2019-12-26] MEDS ORDERED: LIDOCAINE 1% 20 ML VIAL ONE (09:15)
[2019-12-26] MEDS ORDERED: BUPIVACAINE MPF 0.25% 30 ML VIAL ONE (09:15)
[2019-12-26] MEDS ORDERED: SODIUM CHLORIDE 0.9% 250 ML IV SCH (09:30)
[2019-12-26] MEDS ORDERED: MEPERIDINE 25 MG/1 ML VIAL IV PRN (09:56)
[2019-12-26] MEDS ORDERED: ONDANSETRON 4 MG/2 ML VIAL IV PRN (09:56)
[2019-12-26] MEDS ORDERED: diphenhydrAMINE 50 MG/1 ML VIAL IV PRN (09:56)
[2019-12-26] MEDS ORDERED: PROMETHAZINE INJ 25 MG in SODIUM CHLORIDE 0.9% 50 ML IV PRN (09:56)
[2019-12-26] MEDS ORDERED: ENOXAPARIN 100 MG/ML SYRINGE SUBCUT ONE (10:00)
[2019-12-26] MEDS: AMIODARONE 200 MG TABLET PO SCH (10:27)
[2019-12-26] MEDS: SEVELAMER CARBONATE 800 MG TABLET PO SCH ×3 (10:28→22:08)
[2019-12-26] MEDS: PANTOPRAZOLE 40 MG TABLET PO SCH (10:28)
[2019-12-26] MEDS: allopurinoL 100 MG TABLET PO SCH (10:28)
[2019-12-26] MEDS: FERROUS SULFATE 325 MG TABLET PO SCH ×2 (10:28→22:09)
[2019-12-26] MEDS: ASPIRIN EC 81 MG TABLET PO SCH (10:28)
[2019-12-26] MEDS: MULTIVITAMIN (CENTRUM) TABLET PO SCH (10:28)
[2019-12-26] MEDS: SODIUM HYPOCHLORITE 0.25% IRRIG 473 ML BOTTLE TOP SCH (10:29)
[2019-12-26] MEDS: carvediloL 3.125 MG TABLET PO SCH ×2 (10:29→16:44)
[2019-12-26] MEDS: ZINC OXIDE PASTE 113 GM TUBE TOP SCH ×2 (10:29→22:10)
[2019-12-26] MEDS ORDERED: propofoL 200 MG/20 ML VIAL IV ONE (12:30)
[2019-12-26] MEDS ORDERED: MIDAZOLAM 2 MG/2 ML VIAL ONE (12:31)
[2019-12-26] MEDS ORDERED: KETAMINE 500 MG/10 ML VIAL ONE (12:31)
[2019-12-26] MEDS ORDERED: fentaNYL 100 MCG/2 ML VIAL ONE (12:33)
[2019-12-26] MEDS: ACETAMINOPHEN 325 MG TABLET PO PRN (15:50)
[2019-12-26] MEDS: traMADol 50 MG TABLET PO PRN (19:22)
[2019-12-26] MEDS: ATORVASTATIN 10 MG TABLET PO SCH (22:09)
[2019-12-27 05:00] LABS: Hematocrit 23.4 VOL% (42.0-52.0); Hemoglobin 7.3 GM/DL (14.0-18.0)
[2019-12-27] MEDS: INSULIN REGULAR 100 UNIT/ML SUBCUT SCH ×4 (07:20→21:43)
[2019-12-27] MEDS ORDERED: SODIUM CHLORIDE 0.9% 1,000 ML IV SCH (08:00)
[2019-12-27] MEDS ORDERED: PHENYLEPHRINE 1 MG/10 ML SYRINGE IV ONE (09:00)
[2019-12-27] MEDS ORDERED: LIDOCAINE 2% 5 ML VIAL ONE (09:00)
[2019-12-27] MEDS ORDERED: propofoL 200 MG/20 ML VIAL IV ONE (09:00)
[2019-12-27] MEDS: ZINC OXIDE PASTE 113 GM TUBE TOP SCH ×2 (09:20→21:43)
[2019-12-27] MEDS: carvediloL 3.125 MG TABLET PO SCH ×2 (09:20→17:08)
[2019-12-27] MEDS: AMIODARONE 200 MG TABLET PO SCH (09:20)
[2019-12-27] MEDS: SODIUM HYPOCHLORITE 0.25% IRRIG 473 ML BOTTLE TOP SCH (09:20)
[2019-12-27] MEDS: SEVELAMER CARBONATE 800 MG TABLET PO SCH ×3 (09:58→21:42)
[2019-12-27] MEDS ORDERED: DEXTROSE 50% 25 GM/50 ML VIAL IV PRN (13:16)
[2019-12-27] MEDS ORDERED: GLUCAGON 1 MG VIAL IM PRN (13:16)
[2019-12-27] MEDS: PANTOPRAZOLE 40 MG TABLET PO SCH (14:03)
[2019-12-27] MEDS: ASPIRIN EC 81 MG TABLET PO SCH (14:03)
[2019-12-27] MEDS: FERROUS SULFATE 325 MG TABLET PO SCH ×2 (14:03→21:42)
[2019-12-27] MEDS: MULTIVITAMIN (CENTRUM) TABLET PO SCH (14:03)
[2019-12-27] MEDS: allopurinoL 100 MG TABLET PO SCH (14:03)
[2019-12-27] MEDS ORDERED: VANCOMYCIN INJ 750 MG in SODIUM CHLORIDE 0.9% 250 ML IV ONE (17:00)
[2019-12-27] MEDS: ATORVASTATIN 10 MG TABLET PO SCH (21:43)
[2019-12-27] MEDS ORDERED: SODIUM CHLORIDE 0.9% 250 ML IV ONE (22:11)
[2019-12-27] MEDS: traMADol 50 MG TABLET PO PRN (23:12)
[2019-12-28] MEDS ORDERED: NOREPINEPHRINE 4 MG/4 ML VIAL IV ONE ×2 (04:35)
[2019-12-28] MEDS ORDERED: SODIUM CHLORIDE 0.9% 500 ML IV ONE (04:43)
[2019-12-28] MEDS ORDERED: NOREPINEPHRINE 8 MG in SODIUM CHLORIDE 0.9% 242 ML IV PRN (04:49)
[2019-12-28 04:54] LABS: Basophils % 0.2 % (0.0-0.8); Hematocrit 22.9 VOL% (42.0-52.0); Immature Granulocytes % 7.6 %; Immature Granulocytes Absolute 0.94 #; Lymphocytes % 16.4 % (21.2-54.2); Mean Corpuscular HGB Conc 27.5 GM/DL (32-36); Mean Corpuscular Volume 113.9 FL (87-102); Mean Platelet Volume 9.8 FL (9.6-12.0); Monocytes % 4.7 % (1.7-12.7); NRBC # 0.24 10*3/uL; Neutrophils % 71.1 % (38.7-73.9); Platelet Count 177 T/CUMM (130-400); Red Blood Count 2.01 MC/CUMM (3.8-5.5); Red Cell Distribution Width 16.2 % (9.3-17.3); White Blood Count 12.3 T/CUMM (4-12)
[2019-12-28 05:08] LABS: Hemoglobin 6.3 GM/DL (14.0-18.0)
[2019-12-28 05:17] LABS: Calcium 8.3 MG/DL (8.5-10.1); Osmolality,Calculated 292.4 MOS/KG (273-304)
[2019-12-28 05:21] LABS: Band Neutrophils 5 % (0-10); Eosinophils 1 % (0-10); Lymphocytes 17 % (20-55); Myelocytes 1 %; Nucleated Red Blood Cells 3 (0-5); Segmented Neutrophils 75 % (50-85); Total Cells Counted 100
[2019-12-28 05:22] LABS: Anisocytosis 1+; Ovalocytes 1+; Platelet Estimate Normal
[2019-12-28] MEDS ORDERED: SODIUM CHLORIDE 0.9% 1,000 ML IV PRN (05:38)
[2019-12-28] MEDS ORDERED: ALBUTEROL 2.5 MG/3 ML NEB RESP TX STA (05:40)
[2019-12-28] MEDS ORDERED: DEXTROSE 50% 25 GM/50 ML SYRINGE IV ONE (05:41)
[2019-12-28] MEDS ORDERED: SODIUM BICARBONATE 50 MEQ/50 ML VIAL IV ONE ×3 (05:41→08:41)
[2019-12-28] MEDS ORDERED: INSULIN REGULAR 100 UNIT/ML IV ONE (05:42)
[2019-12-28] MEDS ORDERED: DEXTROSE 10% 250 ML BAG IV ONE (05:57)
[2019-12-28] MEDS: NOREPINEPHRINE 16 MG in SODIUM CHLORIDE 0.9% 234 ML IV PRN ×4 (07:00→20:37)
[2019-12-28] MEDS: INSULIN REGULAR 100 UNIT/ML SUBCUT SCH ×4 (07:42→23:34)
[2019-12-28] MEDS ORDERED: MIDAZOLAM 2 MG/2 ML VIAL ONE (08:02)
[2019-12-28] MEDS ORDERED: ALBUMIN 25% 50 GM in PREMIX 1 EACH IV ONE (08:09)
[2019-12-28] MEDS ORDERED: MIDAZOLAM 100 MG in SODIUM CHLORIDE 0.9% 80 ML IV PRN (08:09)
[2019-12-28] MEDS ORDERED: MIDAZOLAM 2 MG/2 ML VIAL IV ONE (08:09)
[2019-12-28] MEDS ORDERED: VASOPRESSIN 100 UNITS in SODIUM CHLORIDE 0.9% 95 ML IV PRN (08:11)
[2019-12-28] MEDS: carvediloL 3.125 MG TABLET PO SCH ×2 (08:19→16:29)
[2019-12-28] MEDS: PHENYLEPHRINE DRIP 40 MG/250 ML PREMIX IV PRN (08:26)
[2019-12-28 08:28] LABS: Allen Test Positive; Pt O2 Delivery Device Ventilator
[2019-12-28 08:32] LABS: ABG Base Excess -16.9 MMOL/L (-2.5-2.5); ABG HCO3 12.3 MMOL/L (20-26); ABG Oxygen Saturation 97.2 % (95-100); ABG PCO2 43.9 MM HG (35-48); ABG PO2 138.4 MM HG (80-95); ABG TCO2 13.6 MMOL/L (23-27)
[2019-12-28 08:38] LABS: ABG PH 7.065 (7.35-7.45)
[2019-12-28] MEDS ORDERED: CALCIUM GLUCONATE 1,000 MG in SODIUM CHLORIDE 0.9% 100 ML IV ONE (08:41)
[2019-12-28] MEDS ORDERED: CALCIUM GLUCONATE 1,000 MG/10 ML VIAL IV ONE (08:45)
[2019-12-28] MEDS ORDERED: fentaNYL 100 MCG/2 ML VIAL IV ONE (08:46)
[2019-12-28 10:58] LABS: ABG Base Excess -7.6 MMOL/L (-2.5-2.5); ABG HCO3 18.2 MMOL/L (20-26); ABG Oxygen Saturation 98.2 % (95-100); ABG PCO2 38.6 MM HG (35-48); ABG PH 7.288 (7.35-7.45); ABG TCO2 17.2 MMOL/L (23-27)
[2019-12-28] MEDS: AMIODARONE 200 MG TABLET PO SCH (11:16)
[2019-12-28] MEDS: SEVELAMER CARBONATE 800 MG TABLET PO SCH ×3 (11:16→20:53)
[2019-12-28] MEDS: allopurinoL 100 MG TABLET PO SCH (11:16)
[2019-12-28] MEDS: MULTIVITAMIN (CENTRUM) TABLET PO SCH (11:16)
[2019-12-28] MEDS: PANTOPRAZOLE 40 MG VIAL IV SCH ×2 (11:16→20:54)
[2019-12-28] MEDS: FERROUS SULFATE 325 MG TABLET PO SCH ×2 (11:16→20:53)
[2019-12-28] MEDS: SODIUM HYPOCHLORITE 0.25% IRRIG 473 ML BOTTLE TOP SCH (11:17)
[2019-12-28] MEDS: MEROPENEM 500 MG in SODIUM CHLORIDE 0.9% 100 ML IV SCH (11:17)
[2019-12-28] MEDS: ZINC OXIDE PASTE 113 GM TUBE TOP SCH ×2 (11:19→20:54)
[2019-12-28] MEDS: ASPIRIN EC 81 MG TABLET PO SCH (11:19)
[2019-12-28] MEDS: ATORVASTATIN 10 MG TABLET PO SCH (20:53)
[2019-12-28] MEDS ORDERED: DEXTROSE 5% NACL 0.9% 500 ML IV SCH (23:45)
[2019-12-29] MEDS: PHENYLEPHRINE DRIP 40 MG/250 ML PREMIX IV PRN ×10 (00:17→20:01)
[2019-12-29] MEDS: NOREPINEPHRINE 16 MG in SODIUM CHLORIDE 0.9% 234 ML IV PRN ×3 (03:18→16:53)
[2019-12-29 03:28] LABS: Calcium 7.5 MG/DL (8.5-10.1); Osmolality,Calculated 292.1 MOS/KG (273-304)
[2019-12-29 03:31] LABS: ABG Base Excess -25.3 MMOL/L (-2.5-2.5); ABG HCO3 6.4 MMOL/L (20-26); ABG Oxygen Saturation 95.4 % (95-100); ABG PCO2 35.2 MM HG (35-48); ABG TCO2 6.8 MMOL/L (23-27)
[2019-12-29 03:32] LABS: ABG PH 6.872 (7.35-7.45)
[2019-12-29] MEDS ORDERED: SODIUM BICARBONATE 50 MEQ/50 ML VIAL IV ONE ×9 (03:32→20:02)
[2019-12-29] MEDS ORDERED: SODIUM CHLORIDE 0.9% 500 ML IV ONE (03:33)
[2019-12-29 03:47] LABS: Basophils % 0.2 % (0.0-0.8); Eosinophils % 0.1 % (0.00-10.9); Immature Granulocytes % 1.5 %; Immature Granulocytes Absolute 0.23 #; Lymphocytes # 1.7 10*3/uL (1.4-4.0); Lymphocytes % 10.9 % (21.2-54.2); Mean Corpuscular Volume 111.9 FL (87-102); Mean Platelet Volume 10.3 FL (9.6-12.0); Monocytes % 4.5 % (1.7-12.7); NRBC # 0.29 10*3/uL; Neutrophils % 82.8 % (38.7-73.9); Platelet Count 139 T/CUMM (130-400); Red Blood Count 2.68 MC/CUMM (3.8-5.5); Red Cell Distribution Width 16.9 % (9.3-17.3); White Blood Count 15.7 T/CUMM (4-12)
[2019-12-29 03:50] LABS: Hemoglobin 8.4 GM/DL (14.0-18.0)
[2019-12-29 03:53] LABS: Anisocytosis 1+; Burr Cells 1+; Polychromasia Few
[2019-12-29 03:54] LABS: Hypochromasia Slight; Macrocytosis 1+
[2019-12-29 03:55] LABS: Platelet Estimate Normal
[2019-12-29] MEDS ORDERED: CALCIUM GLUCONATE 1,000 MG in SODIUM CHLORIDE 0.9% 100 ML IV ONE (03:56)
[2019-12-29] MEDS: SODIUM BICARB INJ 150 MEQ in DEXTROSE 5% 850 ML IV SCH ×4 (04:16→18:09)
[2019-12-29] MEDS ORDERED: VANCOMYCIN INJ 750 MG in SODIUM CHLORIDE 0.9% 250 ML IV ONE (04:30)
[2019-12-29 04:55] LABS: ABG Base Excess -20.5 MMOL/L (-2.5-2.5); ABG HCO3 9.2 MMOL/L (20-26); ABG Oxygen Saturation 94.8 % (95-100); ABG PCO2 44.8 MM HG (35-48); ABG TCO2 10.4 MMOL/L (23-27)
[2019-12-29 04:57] LABS: ABG PH 6.969 (7.35-7.45)
[2019-12-29] MEDS: INSULIN REGULAR 100 UNIT/ML SUBCUT SCH ×4 (05:35→19:53)
[2019-12-29 08:25] LABS: ABG Base Excess -20.2 MMOL/L (-2.5-2.5); ABG HCO3 9.3 MMOL/L (20-26); ABG Oxygen Saturation 95.2 % (95-100); ABG PCO2 34.4 MM HG (35-48); ABG TCO2 9.2 MMOL/L (23-27)
[2019-12-29 08:27] LABS: ABG PH 7.038 (7.35-7.45)
[2019-12-29] MEDS: carvediloL 3.125 MG TABLET PO SCH (08:46)
[2019-12-29 10:04] LABS: ABG Base Excess -17.6 MMOL/L (-2.5-2.5); ABG HCO3 10.9 MMOL/L (20-26); ABG Oxygen Saturation 94.3 % (95-100); ABG PCO2 33.5 MM HG (35-48); ABG PO2 89.8 MM HG (80-95); ABG TCO2 10.5 MMOL/L (23-27)
[2019-12-29] MEDS: DEXTROSE 10% 250 ML IV SCH ×10 (10:05→17:19)
[2019-12-29 10:06] LABS: ABG PH 7.112 (7.35-7.45)
[2019-12-29] MEDS ORDERED: DEXTROSE 50% 25 GM/50 ML VIAL IV PRN (10:31)
[2019-12-29] MEDS ORDERED: GLUCAGON 1 MG VIAL IM PRN (10:31)
[2019-12-29] MEDS: MULTIVITAMIN (CENTRUM) TABLET PO SCH (11:05)
[2019-12-29] MEDS: ASPIRIN EC 81 MG TABLET PO SCH (11:05)
[2019-12-29] MEDS: AMIODARONE 200 MG TABLET PO SCH (11:05)
[2019-12-29] MEDS: allopurinoL 100 MG TABLET PO SCH (11:05)
[2019-12-29] MEDS: PANTOPRAZOLE 40 MG VIAL IV SCH ×2 (11:06→22:15)
[2019-12-29] MEDS: FERROUS SULFATE 325 MG TABLET PO SCH ×2 (11:06→22:14)
[2019-12-29] MEDS: MEROPENEM 500 MG in SODIUM CHLORIDE 0.9% 100 ML IV SCH (11:06)
[2019-12-29] MEDS: SODIUM HYPOCHLORITE 0.25% IRRIG 473 ML BOTTLE TOP SCH (11:07)
[2019-12-29] MEDS: ZINC OXIDE PASTE 113 GM TUBE TOP SCH ×2 (11:07→22:14)
[2019-12-29] MEDS: HYDROCORTISONE 100 MG VIAL IV SCH ×2 (11:07→15:49)
[2019-12-29] MEDS: SEVELAMER CARBONATE 800 MG TABLET PO SCH ×3 (11:08→22:15)
[2019-12-29 11:51] LABS: ABG Base Excess -17.6 MMOL/L (-2.5-2.5); ABG HCO3 10.8 MMOL/L (20-26); ABG Oxygen Saturation 94.9 % (95-100); ABG PO2 94.1 MM HG (80-95); ABG TCO2 10.2 MMOL/L (23-27)
[2019-12-29 11:55] LABS: ABG PCO2 31.5 MM HG (35-48)
[2019-12-29] MEDS ORDERED: FLUCONAZOLE INJ 200 MG in PREMIX 1 EACH IV SCH (12:00)
[2019-12-29 13:20] LABS: ABG Base Excess -16.5 MMOL/L (-2.5-2.5); ABG HCO3 11.7 MMOL/L (20-26); ABG Oxygen Saturation 96.1 % (95-100); ABG PCO2 33.1 MM HG (35-48); ABG TCO2 11.1 MMOL/L (23-27)
[2019-12-29 13:28] LABS: ABG PH 7.143 (7.35-7.45)
[2019-12-29] MEDS ORDERED: SODIUM POLYSTYRENE SULFATE 15 GM/60 ML BOTTLE PO ONE (13:32)
[2019-12-29] MEDS ORDERED: CALCIUM GLUCONATE 2,000 MG in SODIUM CHLORIDE 0.9% 100 ML IV ONE (14:00)
[2019-12-29] MEDS: SODIUM BICARBONATE 50 MEQ/50 ML VIAL IV SCH ×2 (15:55→18:09)
[2019-12-29] MEDS ORDERED: DEXTROSE 10% 250 ML BAG IV PRN (16:30)
[2019-12-29] MEDS ORDERED: ALBUMIN 25% 25 GM in PREMIX 1 EACH IV ONE (17:27)
[2019-12-29] MEDS ORDERED: DOPamine 800 MG/250 ML PREMIX IV ONE (19:41)
[2019-12-29] MEDS ORDERED: DOPamine 800 MG/250 ML PREMIX IV PRN (19:41)
[2019-12-29] MEDS ORDERED: SODIUM BICARBONATE 50 MEQ/50 ML VIAL IV SCH (20:00)
[2019-12-29] MEDS: ATORVASTATIN 10 MG TABLET PO SCH (22:14)
[2019-12-29 22:54] VITALS: BP 90/36
[2019-12-30 06:53] LABS: ABG PH 7.126 (7.35-7.45)
== END 2019-12-29 20:32 | disposition expired | DRG 616 ==
LOC: EDUNIT# → EDBD → N.ED 12:21 → N.EDINP 17:32 → N.2E 18:47 → N.ICU 12-28 04:31
PROVIDERS: ADMIT Family Medicine; ATTEND Family Medicine